=== PATIENT | male | born 1940 | race Caucasian/White ===

== ENCOUNTER 2017-06-28 17:41 | Inpatient (IN) | payer MEDICARE, BC ==
[~2017-06-28] VITALS: Ht 172.7 cm; Wt 72.8 kg
[~2017-06-28 17:41] MED LIST: ASPI81TA2 PO; BISA10SU61 RC; DILT30TA2 PO; DONE5TAB3 PO; FAMO20TA8 PO; HYDR-552 PO; LEVO50TA8 PO; MAGN400O6 PO; MULT-213 PO; RISP0.253 PO; TYL2T PO
--- NOTE | 2017-06-28 17:58 | NUR ---
Recieved pt to ed bed 03, a/ox3, pt was bb private ambulance from [facility] for pulmonary infiltrates on XRAY. Pt arrived on o2 at 3lpm via NC, pt denies chest pain. Pt gowned and placed on cont monitoring, NAD. VSS rr even and unlabroed. All needs are attended, kept warm and comfortable. pending er md evaluation
[2017-06-28 18:25] LABS: BASOPHILS # (AUTO) 0.1 /CMM (0.0-0.2); BASOPHILS % (AUTO) 0.4 % (0.0-2.0); EOSINOPHILS # (AUTO) 0.1 /CMM (0.0-0.7); EOSINOPHILS % (AUTO) 0.9 % (0.0-6.0); HEMATOCRIT 36 % (39-51); HEMOGLOBIN 11.7 g/dL (13.5-17.5); LYMPHOCYTES # (AUTO) 1.1 /CMM (0.8-4.8); LYMPHOCYTES % (AUTO) 7.6 % (20.0-44.0); MEAN CORPUSCULAR HEMOGLOBIN 27 PG (26.0-33.0); MEAN CORPUSCULAR HGB CONC 33 g/dl (31.0-36.0); MEAN CORPUSCULAR VOLUME 83 fL (80-96); MONOCYTES # (AUTO) 1.4 /CMM (0.1-1.30); MONOCYTES % (AUTO) 9.7 % (2.0-12.0); NEUTROPHILS # (AUTO) 11.7 /CMM (1.8-8.9); NEUTROPHILS % (AUTO) 81.4 % (43.0-81.0); PLATELET COUNT (AUTO) 250 /CMM (150-450); RDW COEFFICIENT OF VARIATION 15.6 (11.5-15.0); RED BLOOD CELL COUNT(AUTO) 4.31 MIL/uL (4.5-6.0); WHITE BLOOD COUNT (AUTO) 14.4 K/uL (4.3-11.0)
[2017-06-28 18:31] LABS: CALCIUM, SERUM 8.2 mg/dL (8.5-10.1); CARBON DIOXIDE 23 mmol/L (21-32); CHLORIDE 109 mmol/L (98-107); CREATININE 1.9 mg/dL (0.6-1.3); GLUCOSE 120 mg/dL (74-106); SODIUM SERUM 140 mmol/L (136-145); UREA NITROGEN, BLOOD 40 mg/dL (7-18)
[2017-06-28 18:38] LABS: TROPONIN I 0.097 ng/mL (0.00-0.056)
[2017-06-28 18:44] LABS: ALANINE AMINOTRANSFERASE 18 U/L (12-78); ALBUMIN 2.7 g/dL (3.4-5.0); ALKALINE PHOSPHATASE 58 U/L (46-116); ASPARTATE AMINOTRANSFERASE 14 U/L (15-37); B-TYPE NATRIURETIC PEPTIDE 27315 PG/ML (0-125); BILIRUBIN,DIRECT 0.1 mg/dL (0.0-0.2); BILIRUBIN,TOTAL 0.4 mg/dL (0.2-1.0); TOTAL PROTEIN, SERUM 5.6 g/dL (6.4-8.2)
--- NOTE | 2017-06-28 19:22 | NUR ---
REPORT GIVEN TO TOBI ALVA FOR CONT OF CARE
[2017-06-28] MEDS ORDERED: VANCOMYCIN 1 GM in IV D5W 250 ML IV ONE (19:30)
[2017-06-28] MEDS ORDERED: PIPERACILLIN /TAZOBACTAM 3.375 G in IV D5W 50 ML IV ONE (19:30)
--- NOTE | 2017-06-28 19:40 | NUR ---
REPORT RECEIVED FROM PASTORA FLORES RN FOR AMY.
[2017-06-28] MEDS ORDERED: PIPERACILLIN /TAZOBACTAM 3.375 G VIAL IV ONE (19:43)
[2017-06-28] MEDS ORDERED: VANCOMYCIN 1 GM VIAL ONE (19:43)
--- NOTE | 2017-06-28 20:06 | NUR ---
PT RESTING QUIETLY, VSS WITH RESP EVEN UNLABORED. WILL CONTINUE TO MONITOE PATIENT PROVIDING SAFETY AND COMFORT MEASURES.
[2017-06-28] MEDS ORDERED: FUROSEMIDE 20 MG/2 ML VIAL IV ONE (20:30)
[2017-06-28] MEDS ORDERED: FUROSEMIDE 20 MG/2 ML VIAL ONE (20:40)
--- NOTE | 2017-06-28 20:51 | NUR ---
PT ADMIT TO TELE 32O BED 2, REPORT GIVEN TO ADELINE FOR AMY.
[2017-06-28 21:15] VITALS: BP 154/92
--- NOTE | 2017-06-28 21:15 | NUR ---
MAGAZINE SUPERVISOR OPENING NOTES: RECEIVED PT FROM ED. PT IS ON 2LPM VIA NC AND IS TOLERATING WELL. PT HAS IV ON R AC #18G AND IS PATENT AND INTACT. PT IS A/OX2-3. CALL LIGHT WITHIN PT'S REACH. BED KEPT IN LOW, LOCKED POSITION, AND SIDE RAILS X 2 UP. AWAITING FOR ADMISSION ORDERS. PT DENIES ANY PAIN. NO SOB NOTED. NO S/S OF DISTRESS NOTED AT THIS TIME. WILL CONTINUE TO MONITOR PT.
--- NOTE | 2017-06-28 21:27 | NUR ---
PT TRANSPORTED TO [place] [id number] BED 1 WITH RN, ACLS PROTOCOL. VSS.
[2017-06-28] MEDS ORDERED: ENOXAPARIN SODIUM 40 MG/0.4 ML DISP.SYRIN SQ SCH (22:30)
[2017-06-28] MEDS ORDERED: HYDROCODONE/APAP 5/325MG 1 EACH TABLET PO PRN (22:30)
[2017-06-28] MEDS ORDERED: Z GUARD REMEDY 2 OZ OINT TP PRN (22:30)
[2017-06-28] MEDS ORDERED: ONDANSETRON HCL/PF 4 MG/2 ML VIAL IVP PRN (22:30)
[2017-06-28] MEDS ORDERED: AZITHROMYCIN 250 MG TABLET PO SCH (22:30)
[2017-06-28] MEDS ORDERED: AZITHROMYCIN 250 MG TABLET PO ONE (22:30)
[2017-06-28] MEDS ORDERED: ACETAMINOPHEN 325 MG TABLET PO PRN (22:30)
[2017-06-28] MEDS ORDERED: BUMETANIDE INJ 6 MG in IV NS 0.9% 36 ML IV ONE (22:30)
[2017-06-28] MEDS ORDERED: CEFTRIAXONE 1 G in IV D5W 50 ML IV SCH (22:30)
[2017-06-28] MEDS ORDERED: CEFTRIAXONE 1 G VIAL ONE (22:49)
[2017-06-28] MEDS ORDERED: AZITHROMYCIN 250 MG TABLET ONE (22:50)
[2017-06-28] MEDS ORDERED: ENOXAPARIN SODIUM 40 MG/0.4 ML DISP.SYRIN SQ ONE (22:51)
--- NOTE | 2017-06-28 23:17 | NUR ---
MANAGED CARE MANAGER NOTES: ZITHROMAX 250MG TO BE STARTED NEXT DAY ZITHROMAX 500MG IS TO BE GIVEN NOW.
[2017-06-29] VITALS: BP 158/92
[2017-06-29] MEDS ORDERED: BUMETANIDE INJ 0.25 MG/ML VIAL ONE ×2 (00:09→00:11)
--- NOTE | 2017-06-29 03:48 | NUR ---
PIANO TECHNICIAN NOTES: SPOKE TO OPINION POLLS SURVEY WORKER CARLOS TELLO ABOUT LATEST TROPONIN 0.106 ; PER ELISHA, CALL HIM IF IT IS GREATER THAN 1.0 ; WILL MONITOR TROPONIN VALUES.
[2017-06-29 04:00] VITALS: BP 148/79
[2017-06-29] MEDS ORDERED: DILTIAZEM HCL 30 MG TABLET ONE (04:21)
[2017-06-29] MEDS ORDERED: DILTIAZEM HCL 30 MG TABLET PO SCH (05:00)
--- NOTE | 2017-06-29 06:19 | NUR ---
ACTIVITIES THERAPIST NOTES: PT BEING VERBALLY COMBATIVE WHILE BEING CLEANED AND CHANGED. PT ALSO GRABBING AND HITTING CNAS. Addendum: 06/29/17 at 0639 by ISAC GONZALES RN EXPLAINED TO PT THAT HE NEEDED TO BE CHANGED SINCE HE HAD A BOWEL MOVEMENT AND HAS BEEN URINATING. ALSO TOLD THE PT THAT HIS SACRAL REDNESS CAN GET WORSE IF HE DOES NOT GET CLEANED. 2 CNAS ASSISTED. PT HITTING OTHER WATERWORKS PUMP STATION OPERATOR WHILE ANOTHER MALE WATERWORKS PUMP STATION OPERATOR HOLDING ONTO HIS ARMS TO PREVENT FROM HITTING.
--- NOTE | 2017-06-29 06:30 | NUR ---
WILD OYSTER HARVESTER NOTES: PT IS REFUSING TO HAVE BLOOD DRAWN. PT IS BEING VERBALLY ABUSIVE TO INFORMATION SYSTEMS SECURITY MANAGER AND TO STAFF UNDER HIS CARE. WILL TRY AGAIN AT ANOTHER TIME.
[2017-06-29 06:57] VITALS: BP 150/76
--- NOTE | 2017-06-29 07:15 | NUR ---
AUTO SUSPENSION AND STEERING MECHANIC CLOSING NOTES: ALL NEEDS WERE ATTENDED AND ANTICIPATED FOR. PT IS ON 2LPM VIA NC AND IS TOLERATING WELL. PT HAS IV ON R AC #18G AND IS PATENT AND INTACT. PT CURRENTLY S/L. PT IS A/OX2-3. CALL LIGHT WITHIN PT'S REACH. BED KEPT IN LOW, LOCKED POSITION, AND SIDE RAILS X 2 UP. BED ALARM ACTIVATED. PT ON TELE BOX AND READING SHOWS A FIB 86 WITH PVCS. PT DENIES ANY PAIN. NO SOB NOTED. NO S/S OF DISTRESS NOTED AT THIS TIME. ENDORSED TO AM NURSE FOR AMY.
--- NOTE | 2017-06-29 07:20 | NUR ---
ARTIE MS NOTES PATIENT ALERT AND ORIENTED X2-3, NO S/SX OF DISTRESS, DENIES PAIN AT THIS TIME, PIV PATENT AND FLUSHES WELL, INFORMED PATIENT BREAKFAST HELD AT THIS TIME FOR CARDIO CONSULT, VERBALIZED UNDERSTANDING, ALL NEEDS ATTENDED AND MET, CALL LIGHT WITHIN REACH, BED ALARM ON, BED IN LOW POSITION AND LOCKED, SIDERAILS X2 UP, WILL CONTINUE TO MONITOR. Addendum: 06/29/17 at 0749 by STEPHANIE WALLER RN CORRECTION: ELECTRICAL HIGH TENSION TESTER NOTES
[2017-06-29] MEDS: LEVOTHYROXINE SODIUM 50 MCG TABLET PO SCH (07:30)
[2017-06-29 08:00] VITALS: BP 127/95
[2017-06-29] MEDS: ASPIRIN 81 MG TAB.CHEW PO SCH (08:28)
[2017-06-29] MEDS: FAMOTIDINE (20 MG) 20 MG TABLET PO SCH (08:29)
--- NOTE | 2017-06-29 08:29 | NUR ---
RN MS NOTES PATIENT REFUSED ALL PO MEDICATIONS, EXPLAINED RISKS AND BENEFITS STILL REFUSED, PER PATIENT "I NEVER TAKE ANY MEDICATIONS IN MY LIFE." PATIENT EATING BREAKFAST, SEEN BY DR. MOON AND RECEIVED NEW ORDERS. ORDER NOTED AND CARRIED OUT. WILL CONTINUE TO MONITOR.
[2017-06-29 08:55] LABS: BASOPHILS # (AUTO) 0.1 /CMM (0.0-0.2); BASOPHILS % (AUTO) 0.8 % (0.0-2.0); EOSINOPHILS # (AUTO) 0.3 /CMM (0.0-0.7); EOSINOPHILS % (AUTO) 1.9 % (0.0-6.0); HEMATOCRIT 39 % (39-51); HEMOGLOBIN 12.3 g/dL (13.5-17.5); LYMPHOCYTES # (AUTO) 1.2 /CMM (0.8-4.8); LYMPHOCYTES % (AUTO) 8.5 % (20.0-44.0); MEAN CORPUSCULAR HEMOGLOBIN 27 PG (26.0-33.0); MEAN CORPUSCULAR HGB CONC 32 g/dl (31.0-36.0); MEAN CORPUSCULAR VOLUME 84 fL (80-96); NEUTROPHILS # (AUTO) 11.3 /CMM (1.8-8.9); NEUTROPHILS % (AUTO) 81.8 % (43.0-81.0); PLATELET COUNT (AUTO) 233 /CMM (150-450); RDW COEFFICIENT OF VARIATION 16.6 (11.5-15.0); RED BLOOD CELL COUNT(AUTO) 4.65 MIL/uL (4.5-6.0); WHITE BLOOD COUNT (AUTO) 13.8 K/uL (4.3-11.0)
[2017-06-29] MEDS ORDERED: BUMETANIDE INJ 8 MG in IV NS 0.9% 48 ML IV ONE (09:00)
[2017-06-29 10:00] LABS: ALANINE AMINOTRANSFERASE 25 U/L (12-78); ALBUMIN 2.8 g/dL (3.4-5.0); ALKALINE PHOSPHATASE 57 U/L (46-116); ASPARTATE AMINOTRANSFERASE 16 U/L (15-37); BILIRUBIN,TOTAL 0.5 mg/dL (0.2-1.0); CALCIUM, SERUM 8.4 mg/dL (8.5-10.1); CARBON DIOXIDE 24 mmol/L (21-32); CHLORIDE 109 mmol/L (98-107); CREATININE 1.9 mg/dL (0.6-1.3); GLUCOSE 95 mg/dL (74-106); MAGNESIUM 1.9 mg/dL (1.8-2.4); PHOSPHORUS 4.2 mg/dL (2.5-4.9); POTASSIUM 3.9 mmol/L (3.5-5.1); SODIUM SERUM 143 mmol/L (136-145); TOTAL PROTEIN, SERUM 5.9 g/dL (6.4-8.2); UREA NITROGEN, BLOOD 38 mg/dL (7-18)
[2017-06-29 10:05] LABS: THYROID STIMULATING HORMONE 2.918 uIU/mL (0.358-3.74)
[2017-06-29 16:00] VITALS: BP 136/80
--- NOTE | 2017-06-29 16:39 | NUR ---
RN MS NOTES PATIENT A/OX2, BREATHING EVEN AND UNLABORED NO DISTRESS NOTED, PATIENT REFUSED TURNING AND REPOSITIONING, ALLOWED STAFF FOR A QUICK ADL SKIN CARE. EXPLAINED RISKS AND BENEFITS FOR SKIN BREAKDOWN, STILL REFUSED, PATIENT STATED "ITS MY BODY MY SKIN, MY DECISION". WOUND TREATMENT RENDERED, Z-GUARD AND MEPILEX IN PLACED, PATIENT COMPLETED BUMEX MEDICATION, NEEDS ATTENDED AND ANTICIPATED, CALL LIGHT WITHIN REACH, WILL ENDORSE TO WHAT JOB TITLES MEAN FOR AMY. Addendum: 06/29/17 at 1930 by STEPHANIE WALLER RN TIME CORRECTION: 1930
--- NOTE | 2017-06-29 16:49 | NUR ---
RN MS NOTES RECEIVED RESULT FOR MRSA NARES, POSITIVE MRSA NARES, DR. ROLO HDZ AWARE RECEIVED ORDER FOR BACTROBAN OINT. ORDER NOTED AND CARRIED OUT. CONTACT PRECAUTION OBSERVED.
--- NOTE | 2017-06-29 19:30 | NUR ---
TELE/RN RECEIVE PATIENT AWAKE, ALERT, ORIENTED, COMFORTABLE, NO C/O NO DISTRESS NOTED, CALL LIGHT IN REACH. WILL MONITOR.
[2017-06-29] MEDS: MUPIROCIN OINT 2% 22 GM TUBE SCH (21:00)
[2017-06-29] MEDS ORDERED: AZITHROMYCIN 250 MG TABLET PO SCH (21:00)
[2017-06-29 21:01] VITALS: BP 127/73
[2017-06-29] MEDS: ENOXAPARIN SODIUM 40 MG/0.4 ML DISP.SYRIN SQ SCH (21:58)
[2017-06-29] MEDS: risperiDONE 0.25 MG TABLET PO SCH (22:00)
[2017-06-29] MEDS: DONEPEZIL 5 MG TABLET PO SCH (22:00)
--- NOTE | 2017-06-30 00:29 | NUR ---
TELE/RN PATIENT IS SLEEPING AT THIS TIME, EASILY AROUSABLE, APPEAR COMFORTABLE, NO SIGNS OF DISTRESS NOTED, CALL LIGHT IN REACH. WILL CONTINUE TO MONITOR.
[2017-06-30 00:47] VITALS: BP 136/84
[2017-06-30 04:06] VITALS: BP 129/87
[2017-06-30 06:28] LABS: EOSINOPHILS # (AUTO) 0.2 /CMM (0.0-0.7); EOSINOPHILS % (AUTO) 2.1 % (0.0-6.0); HEMATOCRIT 39 % (39-51); HEMOGLOBIN 12.3 g/dL (13.5-17.5); MEAN CORPUSCULAR HEMOGLOBIN 26 PG (26.0-33.0); MEAN CORPUSCULAR HGB CONC 32 g/dl (31.0-36.0); MEAN CORPUSCULAR VOLUME 83 fL (80-96); MONOCYTES # (AUTO) 0.7 /CMM (0.1-1.30); MONOCYTES % (AUTO) 6.1 % (2.0-12.0); NEUTROPHILS # (AUTO) 9.5 /CMM (1.8-8.9); NEUTROPHILS % (AUTO) 82.8 % (43.0-81.0); PLATELET COUNT (AUTO) 220 /CMM (150-450); RDW COEFFICIENT OF VARIATION 16.7 (11.5-15.0); RED BLOOD CELL COUNT(AUTO) 4.64 MIL/uL (4.5-6.0); WHITE BLOOD COUNT (AUTO) 11.5 K/uL (4.3-11.0)
[2017-06-30 06:54] LABS: ALANINE AMINOTRANSFERASE 20 U/L (12-78); ALBUMIN 2.8 g/dL (3.4-5.0); ALKALINE PHOSPHATASE 55 U/L (46-116); ASPARTATE AMINOTRANSFERASE 15 U/L (15-37); BILIRUBIN,TOTAL 0.4 mg/dL (0.2-1.0); CALCIUM, SERUM 8.4 mg/dL (8.5-10.1); CARBON DIOXIDE 31 mmol/L (21-32); CHLORIDE 107 mmol/L (98-107); CREATININE 2.1 mg/dL (0.6-1.3); GLUCOSE 86 mg/dL (74-106); MAGNESIUM 1.8 mg/dL (1.8-2.4); PHOSPHORUS 4.2 mg/dL (2.5-4.9); POTASSIUM 3.9 mmol/L (3.5-5.1); SODIUM SERUM 144 mmol/L (136-145); TOTAL PROTEIN, SERUM 5.9 g/dL (6.4-8.2); UREA NITROGEN, BLOOD 43 mg/dL (7-18)
--- NOTE | 2017-06-30 07:10 | NUR ---
RN NOTES PT IS IN BED, RESTING COMFORTABLY. PT ON RA, RESPIRATIONS ARE EVEN AND UNLABORED. NO SIGNS OF DISTRESS NOTED. SAFETY MEASURES ARE IN PLACE, CALL LIGHT IS IN REACH. WILL CONTINUE TO MONITOR.
[2017-06-30] MEDS: LEVOTHYROXINE SODIUM 50 MCG TABLET PO SCH (07:30)
[2017-06-30 08:00] VITALS: BP 138/81
[2017-06-30] MEDS: FAMOTIDINE (20 MG) 20 MG TABLET PO SCH (08:28)
[2017-06-30] MEDS: ASPIRIN 81 MG TAB.CHEW PO SCH (08:28)
[2017-06-30] MEDS: MUPIROCIN OINT 2% 22 GM TUBE SCH ×2 (08:28→21:00)
[2017-06-30] MEDS ORDERED: BUMETANIDE INJ 8 MG in IV NS 0.9% 48 ML IV ONE (10:00)
--- NOTE | 2017-06-30 13:01 | NUR ---
WOUND CARE CONSULT: PT PRESENTS WITH INTACT DEEP TISSUE INJURY TO SACRUM, WELL RASH TO LOWER BUTTOCKS, PERINEAL AREAS PRESENT ON ADMISSION. PT ALSO NOTED TO HAVE DUSKY COLOR TO PLANTAR FEET AND HEELS WITH SCARRING TO RT HEEL. PT IS VERY BONY. ALL SKIN PROTECTION AND WOUND RECOMMENDATIONS DISCUSSED WITH NURSING STAFF. FIRST STEP MATTRESS ORDERED. WILL SEE PRN. MOORE IN AGREEMENT WITH PLAN OF CARE. Addendum: 06/30/17 at 1304 by GIANNA ROSE WNDNU Amended: Links added.
[2017-06-30 16:00] VITALS: BP 120/92
[2017-06-30] MEDS: PYRIDOSTIGMINE BROMIDE 60 MG TABLET PO SCH (17:00)
[2017-06-30] MEDS: CLOTRIMAZOLE 1% 15 GM TUBE TP SCH (17:08)
--- NOTE | 2017-06-30 18:14 | NUR ---
RN NOTES PT IS SLEEPING IN BED COMFORTABLY. PT ON 2L O2 VIA NASAL CANNULA, RESPIRATIONS ARE EVEN AND UNLABORED. PT ON [employer] FIRST STEP AIR MATTRESS AND HEELS ARE OFFLOADING. WOUND CARE WAS PROVIDED FOR SACRUM AND DIAPER WAS CHANGED NEEDED. PT REFUSED ALL ORAL MEDICATIONS. IV ON RAC INTACT AND PATENT, RUNNING BUMEX @ 10ML/HR. SAFETY MEASURES ARE IN PLACE, CALL LIGHT IS IN REACH. WILL ENDORSE TO HOUSEKEEPING LEAD RN FOR CONTINUITY OF CARE.
--- NOTE | 2017-06-30 19:43 | NUR ---
TELE/RN RECEIVE PATIENT AWAKE, ALERT, ORIENTED, COMFORTABLE, NO C/O PAIN, NO DISTRESS NOTED, CALL LIGHT IN REACH. WILL MONITOR.
[2017-06-30 20:16] VITALS: BP 104/69
[2017-06-30] MEDS: ENOXAPARIN SODIUM 40 MG/0.4 ML DISP.SYRIN SQ SCH (21:00)
[2017-06-30] MEDS: DONEPEZIL 5 MG TABLET PO SCH (22:00)
[2017-06-30] MEDS: risperiDONE 0.25 MG TABLET PO SCH (22:00)
--- NOTE | 2017-06-30 22:47 | NUR ---
MS/RN PATIENT REFUSED ALL DUE MEDS. ALL MEDS WERE RETURNED TO [facility].
[2017-07-01] MEDS: LEVOTHYROXINE SODIUM 50 MCG TABLET PO SCH (07:30)
--- NOTE | 2017-07-01 07:32 | NUR ---
MS RN OPENING NOTES RECEIVED PT IN STABLE CONDITION. PATIENT IS SLEEPING IN BED. CALL LIGHT IS WITHIN REACH. BEDSIDE RAILS ARE UP X2. BED IS LOCKED AND LOWERED. WILL CONTINUE TO MONITOR.
[2017-07-01 08:00] VITALS: BP 131/96
[2017-07-01] MEDS ORDERED: BUMETANIDE INJ 8 MG in IV NS 0.9% 48 ML IV ONE (08:30)
[2017-07-01] MEDS: PYRIDOSTIGMINE BROMIDE 60 MG TABLET PO SCH ×3 (09:00→17:38)
[2017-07-01] MEDS: FAMOTIDINE (20 MG) 20 MG TABLET PO SCH (09:00)
[2017-07-01] MEDS: MUPIROCIN OINT 2% 22 GM TUBE SCH ×2 (09:00→21:00)
[2017-07-01] MEDS: ASPIRIN 81 MG TAB.CHEW PO SCH (09:00)
[2017-07-01] MEDS: CLOTRIMAZOLE 1% 15 GM TUBE TP SCH ×2 (09:35→17:39)
[2017-07-01 10:18] LABS: BASOPHILS % (AUTO) 0.1 % (0.0-2.0); EOSINOPHILS # (AUTO) 0.2 /CMM (0.0-0.7); EOSINOPHILS % (AUTO) 1.4 % (0.0-6.0); HEMATOCRIT 43 % (39-51); HEMOGLOBIN 13.5 g/dL (13.5-17.5); LYMPHOCYTES # (AUTO) 1.3 /CMM (0.8-4.8); LYMPHOCYTES % (AUTO) 10.1 % (20.0-44.0); MEAN CORPUSCULAR HEMOGLOBIN 26 PG (26.0-33.0); MEAN CORPUSCULAR HGB CONC 31 g/dl (31.0-36.0); MEAN CORPUSCULAR VOLUME 83 fL (80-96); MONOCYTES # (AUTO) 0.5 /CMM (0.1-1.30); MONOCYTES % (AUTO) 3.9 % (2.0-12.0); NEUTROPHILS # (AUTO) 10.8 /CMM (1.8-8.9); NEUTROPHILS % (AUTO) 84.5 % (43.0-81.0); PLATELET COUNT (AUTO) 231 /CMM (150-450); RED BLOOD CELL COUNT(AUTO) 5.14 MIL/uL (4.5-6.0); WHITE BLOOD COUNT (AUTO) 12.8 K/uL (4.3-11.0)
[2017-07-01 10:38] LABS: ALANINE AMINOTRANSFERASE 19 U/L (12-78); ALKALINE PHOSPHATASE 57 U/L (46-116); ASPARTATE AMINOTRANSFERASE 13 U/L (15-37); BILIRUBIN,TOTAL 0.5 mg/dL (0.2-1.0); CALCIUM, SERUM 8.7 mg/dL (8.5-10.1); CARBON DIOXIDE 27 mmol/L (21-32); CHLORIDE 103 mmol/L (98-107); CREATININE 2.1 mg/dL (0.6-1.3); GLUCOSE 161 mg/dL (74-106); MAGNESIUM 1.8 mg/dL (1.8-2.4); PHOSPHORUS 3.7 mg/dL (2.5-4.9); POTASSIUM 3.9 mmol/L (3.5-5.1); SODIUM SERUM 141 mmol/L (136-145); TOTAL PROTEIN, SERUM 6.3 g/dL (6.4-8.2); UREA NITROGEN, BLOOD 48 mg/dL (7-18)
[2017-07-01 16:00] VITALS: BP 106/72
--- NOTE | 2017-07-01 18:40 | NUR ---
MS RN CLOSING NOTES PATIENT IS IN NO APPARENT DISTRESS. PATIENT IS RESTING IN BED. CALL LIGHT IS WITHIN REACH. BEDSIDE RAILS ARE UP X2. BED IS LOCKED AND LOWERED. WILL ENDORSE CARE TO DIESEL TRUCK CRANE OPERATOR NURSE FOR AMY.
--- NOTE | 2017-07-01 19:30 | NUR ---
MS/RN RECEIVE PATIENT SLEEPING, EASILY AROUSABLE, APPEAR COMFORTABLE, NO SIGNS OF DISTRESS NOTED, CALL LIGHT IN REACH. WILL MONITOR.
[2017-07-01 20:00] VITALS: BP 119/71
[2017-07-01] MEDS: ENOXAPARIN SODIUM 40 MG/0.4 ML DISP.SYRIN SQ SCH (21:00)
[2017-07-01] MEDS: DONEPEZIL 5 MG TABLET PO SCH (22:00)
[2017-07-01] MEDS: risperiDONE 0.25 MG TABLET PO SCH (22:00)
--- NOTE | 2017-07-01 23:38 | NUR ---
MS/RN PATIENT REFUSED STRAIGHT CATH ORDERED TO OBTAIN URINE SPECIMEN FOR UA PROFILE.
--- NOTE | 2017-07-02 06:50 | NUR ---
MS/RN PATIENT IS SLEEPING AT THIS TIME, AROUSABLE, NO DISTRESS NOTED, ALL NEEDS ATTENDED AT THIS TIME. WILL CONTINUE TO MONITOR.
--- NOTE | 2017-07-02 07:25 | NUR ---
MS RN OPENING NOTES RECEIVED PATIENT IN STABLE CONDITION. PATIENT IS RESTING IN BED. BEDSIDE RAILS ARE UP X2. BED IS LOCKED AND LOWERED. CALL LIGHT IS WITHIN REACH. WILL CONTINUE TO MONITOR.
[2017-07-02] MEDS: LEVOTHYROXINE SODIUM 50 MCG TABLET PO SCH (07:58)
[2017-07-02] MEDS: FUROSEMIDE 100 MG/10 ML VIAL IV SCH ×3 (07:59→16:00)
[2017-07-02 08:00] VITALS: BP 128/87
[2017-07-02 08:06] LABS: BASOPHILS % (AUTO) 0.1 % (0.0-2.0); EOSINOPHILS # (AUTO) 0.3 /CMM (0.0-0.7); EOSINOPHILS % (AUTO) 1.6 % (0.0-6.0); HEMATOCRIT 43 % (39-51); HEMOGLOBIN 13.1 g/dL (13.5-17.5); LYMPHOCYTES # (AUTO) 1.9 /CMM (0.8-4.8); LYMPHOCYTES % (AUTO) 11.9 % (20.0-44.0); MEAN CORPUSCULAR HEMOGLOBIN 26 PG (26.0-33.0); MEAN CORPUSCULAR HGB CONC 31 g/dl (31.0-36.0); MEAN CORPUSCULAR VOLUME 84 fL (80-96); MONOCYTES # (AUTO) 1.3 /CMM (0.1-1.30); MONOCYTES % (AUTO) 7.9 % (2.0-12.0); NEUTROPHILS # (AUTO) 12.7 /CMM (1.8-8.9); NEUTROPHILS % (AUTO) 78.5 % (43.0-81.0); PLATELET COUNT (AUTO) 193 /CMM (150-450); RDW COEFFICIENT OF VARIATION 16.5 (11.5-15.0); RED BLOOD CELL COUNT(AUTO) 5.11 MIL/uL (4.5-6.0); WHITE BLOOD COUNT (AUTO) 16.1 K/uL (4.3-11.0)
[2017-07-02] MEDS: PYRIDOSTIGMINE BROMIDE 60 MG TABLET PO SCH ×3 (09:44→17:31)
[2017-07-02] MEDS: ASPIRIN 81 MG TAB.CHEW PO SCH (09:44)
[2017-07-02] MEDS: FAMOTIDINE (20 MG) 20 MG TABLET PO SCH (09:45)
[2017-07-02] MEDS: MUPIROCIN OINT 2% 22 GM TUBE SCH ×2 (09:45→21:00)
[2017-07-02] MEDS: CLOTRIMAZOLE 1% 15 GM TUBE TP SCH ×2 (09:45→17:31)
[2017-07-02 10:03] LABS: CALCIUM, SERUM 8.9 mg/dL (8.5-10.1); CARBON DIOXIDE 26 mmol/L (21-32); CHLORIDE 100 mmol/L (98-107); CREATININE 2.2 mg/dL (0.6-1.3); GLUCOSE 132 mg/dL (74-106); POTASSIUM 3.6 mmol/L (3.5-5.1); SODIUM SERUM 142 mmol/L (136-145); UREA NITROGEN, BLOOD 66 mg/dL (7-18)
[2017-07-02 10:09] LABS: ALANINE AMINOTRANSFERASE 23 U/L (12-78); ALBUMIN 3.6 g/dL (3.4-5.0); ALKALINE PHOSPHATASE 68 U/L (46-116); ASPARTATE AMINOTRANSFERASE 16 U/L (15-37); BILIRUBIN,TOTAL 0.5 mg/dL (0.2-1.0); MAGNESIUM 1.9 mg/dL (1.8-2.4); PHOSPHORUS 3.5 mg/dL (2.5-4.9); TOTAL PROTEIN, SERUM 7.3 g/dL (6.4-8.2)
--- NOTE | 2017-07-02 17:01 | NUR ---
3RD DOSE OF LASIX SCHEDULED AT 1700 NOT GIVEN. DOSE 80MG. NOT GIVEN DUE TO BELOW BASELINE BLOOD PRESSURE LOW OF 96/68.
--- NOTE | 2017-07-02 19:00 | NUR ---
MS RN CLOSING NOTES PATIENT IS IN STABLE CONDITION. IN NO APPARENT DISTRESS. PATIENT IS RESTING IN BED. CALL LIGHT IS WITHIN REACH. BEDSIDE RAILS ARE UP X2. BED IS LOCKED AND LOWERED. WILL GIVE REPORT TO ASSISTANT HALL DIRECTOR NURSE FOR AMY.
[2017-07-02 20:00] VITALS: BP 107/65
[2017-07-02] MEDS: ENOXAPARIN SODIUM 40 MG/0.4 ML DISP.SYRIN SQ SCH (21:00)
[2017-07-02] MEDS: risperiDONE 0.25 MG TABLET PO SCH (22:00)
[2017-07-02] MEDS: DONEPEZIL 5 MG TABLET PO SCH (22:00)
--- NOTE | 2017-07-02 22:00 | NUR ---
PT REFUSED ALL MEDICATIONS. : LOVENOX, BACTROBAN OINT, ARICEPT, RISPERDAL. WILL CONTINUE TO MONITOR. Addendum: 07/03/17 at 0553 by IBRAHIMA MCDUFFIE RN EXPLAINED RISKS AND BENEFITS; PT STATED "JUST LEAVE ME ALONE, I DON'T WANT TO TAKE THOSE MEDICATIONS."
[2017-07-03 06:30] LABS: EOSINOPHILS # (AUTO) 0.2 /CMM (0.0-0.7); EOSINOPHILS % (AUTO) 1.7 % (0.0-6.0); HEMATOCRIT 41 % (39-51); HEMOGLOBIN 12.9 g/dL (13.5-17.5); LYMPHOCYTES # (AUTO) 1.8 /CMM (0.8-4.8); LYMPHOCYTES % (AUTO) 12.3 % (20.0-44.0); MEAN CORPUSCULAR HEMOGLOBIN 26 PG (26.0-33.0); MEAN CORPUSCULAR HGB CONC 31 g/dl (31.0-36.0); MEAN CORPUSCULAR VOLUME 83 fL (80-96); MONOCYTES # (AUTO) 0.9 /CMM (0.1-1.30); MONOCYTES % (AUTO) 6.1 % (2.0-12.0); NEUTROPHILS # (AUTO) 11.6 /CMM (1.8-8.9); NEUTROPHILS % (AUTO) 79.9 % (43.0-81.0); PLATELET COUNT (AUTO) 214 /CMM (150-450); RDW COEFFICIENT OF VARIATION 16.5 (11.5-15.0); RED BLOOD CELL COUNT(AUTO) 4.93 MIL/uL (4.5-6.0); WHITE BLOOD COUNT (AUTO) 14.6 K/uL (4.3-11.0)
[2017-07-03 06:51] LABS: ALANINE AMINOTRANSFERASE 18 U/L (12-78); ALBUMIN 2.9 g/dL (3.4-5.0); ALKALINE PHOSPHATASE 53 U/L (46-116); ASPARTATE AMINOTRANSFERASE 17 U/L (15-37); BILIRUBIN,TOTAL 0.4 mg/dL (0.2-1.0); CALCIUM, SERUM 8.6 mg/dL (8.5-10.1); CARBON DIOXIDE 34 mmol/L (21-32); CHLORIDE 100 mmol/L (98-107); CREATININE 2.2 mg/dL (0.6-1.3); GLUCOSE 92 mg/dL (74-106); MAGNESIUM 1.9 mg/dL (1.8-2.4); PHOSPHORUS 3.1 mg/dL (2.5-4.9); POTASSIUM 3.5 mmol/L (3.5-5.1); SODIUM SERUM 141 mmol/L (136-145); TOTAL PROTEIN, SERUM 5.9 g/dL (6.4-8.2); UREA NITROGEN, BLOOD 67 mg/dL (7-18)
[2017-07-03] MEDS: LEVOTHYROXINE SODIUM 50 MCG TABLET PO SCH (06:52)
--- NOTE | 2017-07-03 07:33 | NUR ---
RN CLOSING NOTES NO SIGNIFICANT CHANGES OVER NIGHT. PT REFUSED ALL MEDICATIONS FROM [id number]. PT AWAKE AND ALERT RESTING IN BED. NO S/S OF PAIN OR DISTRESS. NO COMPLAINTS OF SOB. PT ON 2L O2 VIA NASAL CANNULA. PT TOLERATING WELL. PT HAS A RIGHT AC IV #18, SL, INTACT AND PATENT. SAFETY PRECAUTIONS IN PLACE. BED IN LOW, LOCKED POSITION, WITH 2XSIDERAILS UP. CALL LIGHT WITHIN REACH. WILL ENDORSE TO DAY SNURSE FOR CONTINUITY OF CARE.
[2017-07-03 08:00] VITALS: BP 102/77
--- NOTE | 2017-07-03 08:00 | NUR ---
MS RN OPENING NOTES RECEIVED REPORT FROM [facility] AWAKE AND ALERT RESTING IN BED. NO S/S OF PAIN OR DISTRESS. NO COMPLAINTS OF SOB. PT ON 2L O2 VIA NASAL CANNULA. PT TOLERATING WELL. PT HAS A RIGHT AC IV #18, SL, INTACT AND PATENT. SAFETY PRECAUTIONS IN PLACE. BED IN LOW, LOCKED POSITION, WITH 2XSIDERAILS UP. CALL LIGHT WITHIN REACH. WILL CONTINUE TO MONITOR.
[2017-07-03] MEDS: PYRIDOSTIGMINE BROMIDE 60 MG TABLET PO SCH ×3 (09:06→17:39)
[2017-07-03] MEDS: FAMOTIDINE (20 MG) 20 MG TABLET PO SCH (09:06)
[2017-07-03] MEDS: ASPIRIN 81 MG TAB.CHEW PO SCH (09:06)
[2017-07-03] MEDS: CLOTRIMAZOLE 1% 15 GM TUBE TP SCH ×2 (09:07→17:40)
[2017-07-03] MEDS: MUPIROCIN OINT 2% 22 GM TUBE SCH ×2 (09:07→22:47)
[2017-07-03 16:00] VITALS: BP 108/71
--- NOTE | 2017-07-03 19:00 | NUR ---
RN OPENING NOTES RECEIVED REPORT FROM [facility] MARR AWAKE AND ALERT RESTING IN BED. NO S/S OF PAIN OR DISTRESS. NO COMPLAINTS OF SOB. PT ON 2L O2 VIA NASAL CANNULA. PT TOLERATING WELL. PT HAS A RIGHT AC IV #18, SL, INTACT AND PATENT. SAFETY PRECAUTIONS IN PLACE. BED IN LOW, LOCKED POSITION, WITH 2XSIDERAILS UP. CALL LIGHT WITHIN REACH. WILL CONTINUE TO MONITOR.
[2017-07-03 20:00] VITALS: BP 103/59
[2017-07-03 20:31] VITALS: BP 103/59
[2017-07-03] MEDS: risperiDONE 0.25 MG TABLET PO SCH (22:34)
[2017-07-03] MEDS: DONEPEZIL 5 MG TABLET PO SCH (22:34)
[2017-07-03] MEDS: ENOXAPARIN SODIUM 40 MG/0.4 ML DISP.SYRIN SQ SCH (22:43)
--- NOTE | 2017-07-04 06:56 | NUR ---
RN CLOSING NOTES PT RESTING IN BED. PT WAS COMPLIANT WITH ALL MEDICATIONS. NO S/S OF PAIN OR DISTRESS. NO COMPLAINTS OF SOB. PT ON 2L O2 VIA NASAL CANNULA. PT TOLERATING WELL. HAS L FA IV #24 SL, INTACT AND PATENT. PT PULLED OUT R AC IV. SAFETY PRECAUTIONS IN PLACE. BED IN LOW, LOCKED POSITION, WITH 2XSIDERAILS UP. CALL LIGHT WITHIN REACH. WILL CONTINUE TO MONITOR.
--- NOTE | 2017-07-04 07:38 | NUR ---
PT. REFUSED FOR CHEST XRAY, INFORMED RN (IBRAHIMA).
--- NOTE | 2017-07-04 07:44 | NUR ---
MS/RN OPENING NOTE PATIENT IN BED IN STABLE CONDITION. A/O X 4. NO SIGNS OF ACUTE DISTRESS. C/O OF BACK PAIN RATE 03/26. WILL ADMINISTER PRN PAIN MEDICATION. ALL NEEDS ATTENDED TO. CALL LIGHT WITHIN REACH. 1:1 SITTER AT BEDSIDE. WILL CONTINUE TO MONITOR TO ENSURE SAFETY. Addendum: 07/04/17 at 0748 by SANFORD PAIZ RN NO 1:1 SITTER NEEDED AT BEDSIDE.
[2017-07-04 08:00] VITALS: BP 128/75
[2017-07-04] MEDS: PYRIDOSTIGMINE BROMIDE 60 MG TABLET PO SCH ×3 (08:24→16:51)
[2017-07-04] MEDS: CLOTRIMAZOLE 1% 15 GM TUBE TP SCH ×2 (08:24→16:53)
[2017-07-04] MEDS: MUPIROCIN OINT 2% 22 GM TUBE SCH ×2 (08:24→21:37)
[2017-07-04] MEDS: FAMOTIDINE (20 MG) 20 MG TABLET PO SCH (08:25)
[2017-07-04] MEDS: LEVOTHYROXINE SODIUM 50 MCG TABLET PO SCH (08:25)
[2017-07-04] MEDS: ASPIRIN 81 MG TAB.CHEW PO SCH (08:25)
[2017-07-04 08:27] LABS: BASOPHILS % (AUTO) 0.2 % (0.0-2.0); EOSINOPHILS # (AUTO) 0.4 /CMM (0.0-0.7); EOSINOPHILS % (AUTO) 3.4 % (0.0-6.0); HEMATOCRIT 36 % (39-51); HEMOGLOBIN 11.3 g/dL (13.5-17.5); LYMPHOCYTES # (AUTO) 1.3 /CMM (0.8-4.8); LYMPHOCYTES % (AUTO) 10.9 % (20.0-44.0); MEAN CORPUSCULAR HEMOGLOBIN 26 PG (26.0-33.0); MEAN CORPUSCULAR HGB CONC 31 g/dl (31.0-36.0); MEAN CORPUSCULAR VOLUME 82 fL (80-96); MONOCYTES # (AUTO) 0.9 /CMM (0.1-1.30); MONOCYTES % (AUTO) 7.2 % (2.0-12.0); NEUTROPHILS # (AUTO) 9.3 /CMM (1.8-8.9); NEUTROPHILS % (AUTO) 78.3 % (43.0-81.0); PLATELET COUNT (AUTO) 192 /CMM (150-450); RDW COEFFICIENT OF VARIATION 15.8 (11.5-15.0); RED BLOOD CELL COUNT(AUTO) 4.37 MIL/uL (4.5-6.0); WHITE BLOOD COUNT (AUTO) 11.8 K/uL (4.3-11.0)
[2017-07-04 08:40] LABS: CALCIUM, SERUM 8.6 mg/dL (8.5-10.1); CARBON DIOXIDE 31 mmol/L (21-32); CHLORIDE 100 mmol/L (98-107); CREATININE 1.9 mg/dL (0.6-1.3); GLUCOSE 90 mg/dL (74-106); POTASSIUM 3.3 mmol/L (3.5-5.1); SODIUM SERUM 140 mmol/L (136-145); UREA NITROGEN, BLOOD 68 mg/dL (7-18)
[2017-07-04 08:46] LABS: ALANINE AMINOTRANSFERASE 17 U/L (12-78); ALBUMIN 2.8 g/dL (3.4-5.0); ALKALINE PHOSPHATASE 48 U/L (46-116); ASPARTATE AMINOTRANSFERASE 17 U/L (15-37); BILIRUBIN,TOTAL 0.5 mg/dL (0.2-1.0); MAGNESIUM 1.9 mg/dL (1.8-2.4); PHOSPHORUS 2.9 mg/dL (2.5-4.9); TOTAL PROTEIN, SERUM 5.5 g/dL (6.4-8.2)
[2017-07-04] MEDS ORDERED: POTASSIUM CHLORIDE 20 MEQ TAB.PRT.SR PO SCH (10:00)
--- NOTE | 2017-07-04 10:00 | NUR ---
MS/RN SEEN BY PARTHA PATIENT SEEN BY PARTHA PATTERN SHOP SUPERVISOR WITH ORDERS FOR KCL 20 MEQ X 1 ONLY, ALSO STOOL OB X 1
--- NOTE | 2017-07-04 11:28 | NUR ---
MS/RN SPOKE WITH PARTHA SPOKE WITH PARTHA REVENUE OFFICER AND MADE AWARE PATIENT HAVE NO BM AT THIS TIME. RECEIVED NEW ORDER OF MOM 30 ML PO X 1 NOW. ALSO MADE AWARE REGARDING CONCERNS FOR PATIENT TO BE DISCHARGE TODAY SECONDARY TO PATIENT MIGHT LOOSE HIS BED AT SNF HE CAME FROM. PER PARTHA HE WILL DISCUSS WITH CASE MANAGEMENT.
[2017-07-04] MEDS ORDERED: MAGNESIUM HYDROXIDE 30 ML UDC PO ONE (11:30)
[2017-07-04 16:00] VITALS: BP 115/69
--- NOTE | 2017-07-04 18:13 | NUR ---
MS/RN CLOSING NOTE PATIENT IN BED IN STABLE CONDITION. A/O X 3. NO SIGNS OF ACUTE DISTRESS. NO COMPLAIN OF PAIN OR DISCOMFORT. ALL NEEDS ATTENDED TO. CALL LIGHT WITHIN REACH. WILL ENDORSE TO NEXT SHIFT FOR CONTINUITY OF CARE.
--- NOTE | 2017-07-04 19:30 | NUR ---
RN NOTES RECEIVED PATIENT IN BED WITH EYES CLOSED, EASILY AROUSABLE. AO X 3, ABLE TO MAKE NEEDS KNOWN. NO ACUTE DISTRESS NOTED. DENIES ANY PAIN AT THIS TIME. IV SITE PATENT, INTACT; FLUSHED. SAFETY REMINDERS GIVEN. CONTACT ISOLATION MAINTAINED FOR MRSA NARES. ON LOW BED WITH BILATERAL UPPER SIDE RAILS UP. BED ALARM ON. CALL LIGHT WITHIN EASY REACH. WILL CONTINUE TO MONITOR.
[2017-07-04 20:00] VITALS: BP 112/55
[2017-07-04 20:11] VITALS: BP 112/55
[2017-07-04] MEDS: risperiDONE 0.25 MG TABLET PO SCH (21:34)
[2017-07-04] MEDS: DONEPEZIL 5 MG TABLET PO SCH (21:34)
[2017-07-04] MEDS: ENOXAPARIN SODIUM 40 MG/0.4 ML DISP.SYRIN SQ SCH (21:35)
[2017-07-05] MEDS: LEVOTHYROXINE SODIUM 50 MCG TABLET PO SCH (06:48)
--- NOTE | 2017-07-05 06:58 | NUR ---
RN NOTES PATIENT ASLEEP, EASILY AROUSABLE. RESPIRATIONS EVEN. NO SIGNS OF PAIN NOTED. DUE MEDS GIVEN WITH NO ASE NOTED. NEEDS ATTENDED. KEPT CLEAN AND DRY. SAFETY PRECAUTIONS AND COMFORT MEASURES IN PLACE. WILL GIVE REPORT TO DAY SHIFT FOR CONTINUITY OF CARE.
--- NOTE | 2017-07-05 07:31 | NUR ---
MS RN OPENING NOTE RECEIVED SBAR REPORT AT THE BEDSIDE. PATIENT IS ON CONTACT ISOLATION. PATIENT IS ASLEEP, EASILY AWAKEN. RESPONSIVE TO VOICE AND TOUCH. NO SIGN OF DISTRESS. DENIES PAIN/DISCOMFORT AT THIS TIME. ALL NEEDS ARE MET AT THIS TIME. PATIENT IS IN BED, BED IS LOCKED, IN LOWEST POSITION, SIDE RAILS UP X3, BED ALARM IS ON. CALL LIGHT WITHIN REACH. PATIENT IS EDUCATION TO CALL FOR ASSISTANCE USING THE CALL LIGHT. VERBALIZED UNDERSTANDING. WILL CONTINUE TO ASSESS/MONITOR THROUGHOUT THE SHIFT.
[2017-07-05 08:00] VITALS: BP_SYST 100; BP_SYST 103; BP_DIAS 73; BP_DIAS 75
[2017-07-05 08:18] LABS: EOSINOPHILS # (AUTO) 0.4 /CMM (0.0-0.7); EOSINOPHILS % (AUTO) 3.2 % (0.0-6.0); HEMATOCRIT 37 % (39-51); HEMOGLOBIN 11.4 g/dL (13.5-17.5); MEAN CORPUSCULAR HEMOGLOBIN 26 PG (26.0-33.0); MEAN CORPUSCULAR HGB CONC 31 g/dl (31.0-36.0); MEAN CORPUSCULAR VOLUME 83 fL (80-96); MONOCYTES # (AUTO) 0.9 /CMM (0.1-1.30); MONOCYTES % (AUTO) 7.4 % (2.0-12.0); NEUTROPHILS # (AUTO) 9.2 /CMM (1.8-8.9); NEUTROPHILS % (AUTO) 73.4 % (43.0-81.0); PLATELET COUNT (AUTO) 163 /CMM (150-450); RDW COEFFICIENT OF VARIATION 16.4 (11.5-15.0); RED BLOOD CELL COUNT(AUTO) 4.43 MIL/uL (4.5-6.0); WHITE BLOOD COUNT (AUTO) 12.5 K/uL (4.3-11.0)
[2017-07-05 08:33] LABS: ALANINE AMINOTRANSFERASE 16 U/L (12-78); ALBUMIN 2.7 g/dL (3.4-5.0); ALKALINE PHOSPHATASE 51 U/L (46-116); ASPARTATE AMINOTRANSFERASE 17 U/L (15-37); BILIRUBIN,TOTAL 0.4 mg/dL (0.2-1.0); CALCIUM, SERUM 8.4 mg/dL (8.5-10.1); CARBON DIOXIDE 35 mmol/L (21-32); CHLORIDE 98 mmol/L (98-107); GLUCOSE 83 mg/dL (74-106); MAGNESIUM 2.4 mg/dL (1.8-2.4); PHOSPHORUS 2.6 mg/dL (2.5-4.9); POTASSIUM 4.4 mmol/L (3.5-5.1); SODIUM SERUM 137 mmol/L (136-145); TOTAL PROTEIN, SERUM 5.6 g/dL (6.4-8.2); UREA NITROGEN, BLOOD 69 mg/dL (7-18)
[2017-07-05] MEDS: PYRIDOSTIGMINE BROMIDE 60 MG TABLET PO SCH ×2 (08:59→13:57)
[2017-07-05] MEDS: ASPIRIN 81 MG TAB.CHEW PO SCH (08:59)
[2017-07-05] MEDS: FAMOTIDINE (20 MG) 20 MG TABLET PO SCH (09:00)
[2017-07-05] MEDS: MUPIROCIN OINT 2% 22 GM TUBE SCH (09:02)
[2017-07-05] MEDS: CLOTRIMAZOLE 1% 15 GM TUBE TP SCH (09:03)
--- NOTE | 2017-07-05 09:27 | NUR ---
MS RN NOTE PATIENT'S IV DISLODGED. PARTHA FARIAS LINOLEUM TILE FLOOR LAYER AT THE BEDSIDE AND NOTIFIED. PER PARTHA FARIAS PATIENT IS OK TO STAY WITHOUT IV ACCESS HE IS BEING DISCHARGED AND SENT TO THE FACILITY TODAY.
[2017-07-05] MEDS ORDERED: FURO-145 PO (09:55)
--- NOTE | 2017-07-05 12:57 | NUR ---
MS RN NOTE TELEPHONE REPORT GIVEN TO RAVIN BURROUGHS AT [facility].
--- NOTE | 2017-07-05 13:00 | NUR ---
MS RN NOTE PATIENT'S DEY INFORMED THAT PATIENT'S AMBULANCE MUSICAL INSTRUMENT SUPERVISOR TIME IS SET FOR 3PM.
[2017-07-05 15:20] VITALS: BP 100/56
--- NOTE | 2017-07-05 15:21 | NUR ---
MS YARN MERCERIZER OPERATOR NOTE SBAR REPORT GIVEN TO AMBULANCE STAFF AT THE BEDSIDE. PATIENT IS AWAKE, A/O X2, FORGETFUL, COOPERATIVE. RESPONSIVE TO VOICE AND TOUCH. NO SIGN OF DISTRESS. DENIES PAIN/DISCOMFORT AT THIS TIME. ALL NEEDS ARE MET AT THIS TIME. DISCHARGE INSTRUCTIONS PROVIDED TO PATIENT. DISCHARGE PACKET GIVEN TO AMBULANCE STAFF. PHONE REPORT GIVEN TO RAVIN DELACRUZ AT [facility]. PATIENT'S /DPOA IS NOTIFIED. PATIENT LEFT THE UNIT VIA GURNEY ACCOMPANIED BY THE AMBULANCE STAFF IN A STABLE CONDITION.
== END 2017-07-05 15:30 | DRG 280 ==
LOC: ER 17:42 → TELE 21:07 → MED 06-30 11:36
PROVIDERS: ADMIT Nurse Practitioner Acute Care; ATTEND Nurse Practitioner Acute Care
DX: I21.4 Non-ST elevation (NSTEMI) myocardial infarction (principal); N17.0 Acute kidney failure with tubular necrosis; I50.33 Acute on chronic diastolic (congestive) heart failure; G93.41 Metabolic encephalopathy; J18.9 Pneumonia, unspecified organism; E44.0 Moderate protein-calorie malnutrition; L89.159 Pressure ulcer of sacral region, unspecified stage; D68.59 Other primary thrombophilia; G70.00 Myasthenia gravis without (acute) exacerbation; N18.4 Chronic kidney disease, stage 4 (severe); I13.0 Hypertensive heart and chronic kidney disease with heart failure and stage 1 through stage 4 chronic kidney disease, or unspecified chronic kidney disease; B35.1 Tinea unguium; I48.2 Chronic atrial fibrillation; B35.3 Tinea pedis; E03.9 Hypothyroidism, unspecified; F03.90 Unspecified dementia, unspecified severity, without behavioral disturbance, psychotic disturbance, mood disturbance, and anxiety; K21.9 Gastro-esophageal reflux disease without esophagitis; F32.9 Major depressive disorder, single episode, unspecified; F29 Unspecified psychosis not due to a substance or known physiological condition; G47.00 Insomnia, unspecified; Z88.8 Allergy status to other drugs, medicaments and biological substances; Z79.82 Long term (current) use of aspirin; S91.102A Unspecified open wound of left great toe without damage to nail, initial encounter; X58.XXXA Exposure to other specified factors, initial encounter; Y92.129 Unspecified place in nursing home as the place of occurrence of the external cause; D63.8 Anemia in other chronic diseases classified elsewhere; D50.9 Iron deficiency anemia, unspecified; L30.4 Erythema intertrigo; Z79.899 Other long term (current) drug therapy; Z91.14 Patient's other noncompliance with medication regimen; I70.203 Unspecified atherosclerosis of native arteries of extremities, bilateral legs; I70.0 Atherosclerosis of aorta
CPT/HCPCS: 36415; 71010-TC; 80048-TC; 80053-TC; 80061-TC; 80076-TC; 82272-TC; 82306; 82378; 82728-TC; 82962-TC; 83540-TC; 83735-TC; 83880; 84100-TC; 84439-TC; 84443-TC; 84484-TC; 85025-TC; 87040-TC; 87081-TC; 93307-TC; A4216; A4606; A6402; J0696; J1650; J1940; J2543; J3370; J3490; J7030; J7050; J7060; Z7610

== ENCOUNTER 2017-08-17 19:53 | Inpatient (IN) | payer MEDICARE, BC ==
[~2017-08-17] VITALS: Ht 180.3 cm; Wt 82.6 kg
[~2017-08-17 19:53] MED LIST changes: +ASPI-1169 PO; -ASPI81TA2 PO; -DONE5TAB3 PO; +DONE5TAB7 PO; +FURO-145 PO
--- NOTE | 2017-08-17 20:12 | NUR ---
PT AKILAH FROM [facility]. WAS SENT HERE FOR ABNORMAL LABS AND HYPOTENSION. WBC 45.3. PT HYPOTENSIVE BLOOD BANK WORKER AND IS SATTING ON LOW 80'S BLOOD BANK WORKER. PLACED ON SIMPLE MASK O2 SATURATION IMPROVED TO ALOW 90'S. GOWNED AND PLACED ON MONITOR. AWAITNG MD GORDILLO.
--- NOTE | 2017-08-17 20:35 | NUR ---
IV LINE STARTED BLOOD DRAWN AND SENT TO LAB.
--- NOTE | 2017-08-17 20:50 | NUR ---
REPORT TO LD ALVA FOR AMY.
--- NOTE | 2017-08-17 20:54 | NUR ---
ASSUMED CARE: BREATHING EVEN/LABORED REPS 23 SAT 95% 5L, NS RUNNING OPEN TO R AC, NO INFL=ILTRATED NOTED, HR 91 BP 107/61.
[2017-08-17 20:55] LABS: BASOPHILS % (AUTO) 0.1 % (0.0-2.0); HEMOGLOBIN 12.7 g/dL (13.5-17.5)
[2017-08-17] MEDS ORDERED: CEFEPIME 1 GM VIAL ONE (20:57)
[2017-08-17 21:00] LABS: EOSINOPHILS % (AUTO) 0.1 % (0.0-6.0); HEMATOCRIT 39 % (39-51); LYMPHOCYTES % (AUTO) 2.3 % (20.0-44.0); MEAN CORPUSCULAR HEMOGLOBIN 26 PG (26.0-33.0); MEAN CORPUSCULAR HGB CONC 33 g/dl (31.0-36.0); MEAN CORPUSCULAR VOLUME 80 fL (80-96); MONOCYTES # (AUTO) 0.5 /CMM (0.1-1.30); MONOCYTES % (AUTO) 1.1 % (2.0-12.0); NEUTROPHILS # (AUTO) 43.5 /CMM (1.8-8.9); NEUTROPHILS % (AUTO) 96.4 % (43.0-81.0); PLATELET COUNT (AUTO) 111 /CMM (150-450); RED BLOOD CELL COUNT(AUTO) 4.88 MIL/uL (4.5-6.0)
[2017-08-17] MEDS ORDERED: IV NS 0.9% 1,000 ML BAG IV ONE (21:00)
[2017-08-17] MEDS ORDERED: CEFEPIME 1 GM in IV D5W 50 ML IV ONE (21:00)
[2017-08-17] MEDS ORDERED: VANCOMYCIN 1 GM in IV D5W 250 ML IV ONE (21:00)
[2017-08-17 21:06] LABS: CALCIUM, SERUM 7.9 mg/dL (8.5-10.1); CARBON DIOXIDE 24 mmol/L (21-32); CHLORIDE 107 mmol/L (98-107); CREATININE 2.2 mg/dL (0.6-1.3); GLUCOSE 100 mg/dL (74-106); POTASSIUM 3.6 mmol/L (3.5-5.1); SODIUM SERUM 139 mmol/L (136-145); UREA NITROGEN, BLOOD 36 mg/dL (7-18)
[2017-08-17 21:09] LABS: INR 1.04 (0.87-1.13)
[2017-08-17 21:11] LABS: ALANINE AMINOTRANSFERASE 10 U/L (12-78); ALBUMIN 2.3 g/dL (3.4-5.0); ALKALINE PHOSPHATASE 52 U/L (46-116); ASPARTATE AMINOTRANSFERASE 22 U/L (15-37); BILIRUBIN,DIRECT 0.2 mg/dL (0.0-0.2); BILIRUBIN,TOTAL 0.7 mg/dL (0.2-1.0); TOTAL PROTEIN, SERUM 5.4 g/dL (6.4-8.2)
[2017-08-17] MEDS ORDERED: VANCOMYCIN 1 GM VIAL ONE (21:15)
[2017-08-17 21:20] LABS: TROPONIN I 0.446 ng/mL (0.00-0.056)
[2017-08-17] MEDS ORDERED: ASPIRIN 81 MG TAB.CHEW PO ONE (21:30)
[2017-08-17] MEDS ORDERED: ASPIRIN 81 MG TAB.CHEW ONE (21:38)
[2017-08-17 22:00] LABS: BAND % (MANUAL) 18 % (0.0-5.0); LYMPHOCYTES % (MANUAL) 6 % (16-48); MONOCYTES % (MANUAL) 1 % (0-11.0); NEUTROPHILS % (MANUAL) 75 (42-76)
--- NOTE | 2017-08-17 22:13 | NUR ---
REPROT TO SUZI ALVA. ALL QUESTIONS ANSWERED
--- NOTE | 2017-08-17 22:30 | NUR ---
BANKING SERVICES CLERK RCD PT FROM ER; ADMISSION ORDERS PENDING. AFIB ON MONITOR. O2 5L VIA MASK. MULTIPLE SKIN ISSUES; SEE FLOWSHEET.
[2017-08-17 22:40] VITALS: BP 137/78
[2017-08-17 23:09] VITALS: BP 123/69
[2017-08-18] VITALS (43 sets, daily range): BP systolic 83–155; BP diastolic 28–116
[2017-08-18] MEDS ORDERED: HYDROCODONE/APAP 5/325MG 1 EACH TABLET PO PRN (02:00)
[2017-08-18] MEDS ORDERED: ZOLPIDEM TARTRATE 5 MG TABLET PO PRN (02:00)
[2017-08-18] MEDS ORDERED: ONDANSETRON HCL/PF 4 MG/2 ML VIAL IVP PRN (02:00)
[2017-08-18] MEDS ORDERED: ACETAMINOPHEN 325 MG TABLET PO PRN (02:00)
[2017-08-18] MEDS: IV NS 0.9% 1,000 ML IV PRN ×2 (02:21→17:10)
[2017-08-18] MEDS: ACETYLCYSTEINE 10% SOLN 400 MG/4 ML VIAL NEB SCH ×3 (02:30→23:19)
[2017-08-18] MEDS ORDERED: BUMETANIDE INJ 1 MG in IV NS 0.9% 40 ML IV ONE (02:30)
[2017-08-18] MEDS ORDERED: BUMETANIDE INJ 0.25 MG/ML VIAL ONE (02:32)
[2017-08-18 02:38] LABS: BASOPHILS # (AUTO) 0.3 /CMM (0.0-0.2); BASOPHILS % (AUTO) 0.8 % (0.0-2.0); EOSINOPHILS % (AUTO) 0.1 % (0.0-6.0); HEMATOCRIT 37 % (39-51); HEMOGLOBIN 11.8 g/dL (13.5-17.5); LYMPHOCYTES # (AUTO) 0.9 /CMM (0.8-4.8); LYMPHOCYTES % (AUTO) 2.4 % (20.0-44.0); MEAN CORPUSCULAR HEMOGLOBIN 26 PG (26.0-33.0); MEAN CORPUSCULAR HGB CONC 32 g/dl (31.0-36.0); MEAN CORPUSCULAR VOLUME 80 fL (80-96); MONOCYTES # (AUTO) 0.3 /CMM (0.1-1.30); MONOCYTES % (AUTO) 0.9 % (2.0-12.0); NEUTROPHILS # (AUTO) 34.8 /CMM (1.8-8.9); NEUTROPHILS % (AUTO) 95.8 % (43.0-81.0); PLATELET COUNT (AUTO) 84 /CMM (150-450); RDW COEFFICIENT OF VARIATION 17.8 (11.5-15.0); RED BLOOD CELL COUNT(AUTO) 4.59 MIL/uL (4.5-6.0)
[2017-08-18 02:41] LABS: ABG OXYGEN SATURATION 91.8 % (92.0-98.5); ABG PCO2 32.1 mmHg (35.0-45.0); ABG PH 7.391 (7.350-7.450); ABG PO2 66.5 mmHg (75.0-100.0); AaDO2 181.8 mmHg; COHb 0.3 % (0.5-1.5); MetHb 0.6 % (0.0-1.5); SITE, ABG Right Radial; VENT MODE, BG SIMPLE MASK
[2017-08-18 02:47] LABS: WHITE BLOOD COUNT (AUTO) 36.3 K/uL (4.3-11.0)
[2017-08-18 03:02] LABS: CALCIUM, SERUM 7.1 mg/dL (8.5-10.1); CARBON DIOXIDE 22 mmol/L (21-32); CHLORIDE 112 mmol/L (98-107); CREATININE 2.2 mg/dL (0.6-1.3); GLUCOSE 93 mg/dL (74-106); MAGNESIUM 1.5 mg/dL (1.8-2.4); PHOSPHORUS 3.2 mg/dL (2.5-4.9); POTASSIUM 3.5 mmol/L (3.5-5.1); SODIUM SERUM 146 mmol/L (136-145); UREA NITROGEN, BLOOD 38 mg/dL (7-18)
[2017-08-18 03:10] LABS: BAND % (MANUAL) 12 % (0.0-5.0); LYMPHOCYTES % (MANUAL) 4 % (16-48); MONOCYTES % (MANUAL) 1 % (0-11.0); NEUTROPHILS % (MANUAL) 83 (42-76)
[2017-08-18] MEDS: DILTIAZEM HCL 30 MG TABLET PO SCH ×3 (04:30→21:00)
[2017-08-18] MEDS ORDERED: PIPERACILLIN /TAZOBACTAM 3.375 G VIAL IV ONE (06:18)
[2017-08-18] MEDS: PIPERACILLIN /TAZOBACTAM 3.375 G in IV D5W 50 ML IV SCH ×4 (06:20→23:11)
--- NOTE | 2017-08-18 06:48 | NUR ---
ATTENDING AMBULATORY CARE PT TOLERATED O2 5L VIA MASK WELL. TURNED AND REPOSITIONED Q2HRS.
--- NOTE | 2017-08-18 07:15 | NUR ---
WARD ATTENDANT NOTES RECEIVED PATIENT AOX1 CONFUSE , NOT IN ACUTE DISTRESS , RESPIRATIONS EVEN AND UNLABORED WITH SPO2 OF 100% VIA SIMPLE MASK @ 5LPM , AFIB 76 ON BEDSIDE MONITOR , IV OF L FA # 20 PATENT AND INTACT WITH NS @ 60ML/HR INFUSING WELL , ALL NEEDS ATTENDED , BED ON LOW AND LOCKED POSITION , SIDE RAILS X2 CALL LIGHT WITHIN REACH , HOB @ 35 , WILL CONTINUE TO MONITOR .
[2017-08-18] MEDS ORDERED: ALBUTEROL FS 2.5 MG/3 ML VIAL.NEB ONE (07:25)
[2017-08-18] MEDS: LEVOTHYROXINE SODIUM 50 MCG TABLET PO SCH (07:30)
--- NOTE | 2017-08-18 07:45 | NUR ---
SCHOOL PSYCHOLOGIST ASSISTANT NOTES UNABLE TO INSERT CABRERA CATHETER DUE TO SMALL EXTERNAL URETHRAL ORIFICE ,
[2017-08-18] MEDS: FAMOTIDINE (20 MG) 20 MG TABLET PO SCH (08:08)
[2017-08-18] MEDS: ASPIRIN 81 MG TAB.CHEW PO SCH (08:08)
--- NOTE | 2017-08-18 08:42 | NUR ---
PROSPECTING DRILLER NOTES SEEN AND EVALUATED BY DR KERR , DISCUSSED LABS , CHEST XRAY , ABG RESULT UPON ADMISSION , ON 5LPM SIMPLE MASK WITH SPO2 OF 100% ,WITH NO SIGNS OF DISTRESS , NO PRESSORS , BP OF 105/69 , UNABLE TO OBTAIN URINE CULTURE DUE TO SMALL URETHRAL OPENING , AFEBRILE , PER MD ORDER STAT ABG , ORDERS CARRIED OUT
[2017-08-18] MEDS: MULTIVITAMINS,THERAGRAN 1 UDTAB TABLET PO SCH (09:00)
--- NOTE | 2017-08-18 09:19 | NUR ---
TECHNICIAN PREVENTATIVE MEDICINE NOTES SEEN AND EVALUATED BY WOUND NURSE , AWAITING FOR WOUND TX ORDERS
[2017-08-18 09:48] LABS: ABG BASE EXCESS -5.3 mmol/L; ABG OXYGEN SATURATION 90.4 % (92.0-98.5); ABG PH 7.414 (7.350-7.450); ABG PO2 61.5 mmHg (75.0-100.0); AaDO2 219.2 mmHg; COHb 0.3 % (0.5-1.5); MetHb 0.3 % (0.0-1.5); O2Hb 89.9 % (94.0-97.0); SITE, ABG Right Radial; VENT MODE, BG SIMPLE MASK
--- NOTE | 2017-08-18 09:52 | NUR ---
WOUND CARE CONSULT: PT PRESENTS WITH MULTIPLE SKIN ISSUES PRESENT ON ADMISSION INCLUDING RT AND LEFT BACK AND SACRAL DEEP TISSUE INJURIES (INTACT) AND RT HIP STAGE 2 ULCER, MULTIPLE AREAS OF WEEPING EDEMA, ESPECIALLY RT ARM, BRUISING WITH FRAGILE SKIN TO ARMS AND LEGS, SKIN TEAR TO CHEST AREA AND DUSKY COLOR TO BILATERAL FEET WITH MULTIPLE DRY ABRASIONS TO DORSAL TOES. ASSESSMENT WAS DIFFICULT DUE TO PT BECOMING AGITATED AND COMBATIVE. PT REFUSED ASSESSMENT OF CHEST SKIN TEAR. ALL SKIN PROTECTION AND WOUND RECOMMENDATIONS MADE AND DISCUSSED WITH NURSING STAFF. FIRST STEP MATTRESS ORDERED. WILL SEE PRN. MOORE IN AGREEMENT WITH PLAN OF CARE. CURRENT NOMAN SCORE IS 12. Addendum: 08/18/17 at 0956 by GIANNA ROSE WNDNU Amended: Links added.
[2017-08-18] MEDS ORDERED: HYDROGEL DRESSING 90 GM TUBE TP PRN (10:00)
--- NOTE | 2017-08-18 10:06 | NUR ---
FLATTENING MACHINE OPERATOR NOTES DAUGHTER AGREES TO PROCEED WITH US GUIDED THORACENTESIS OF THE LEFT LUNG , EXPLAINED THE RISK AND BENEFITS OF THE PROCEDURE , DAUGHTER VERBALIZED UNDERSTANDING , AND SIGNED THE CONSENT ,
[2017-08-18] MEDS ORDERED: FEE PK DOSING 1 MIN EA MC ONE (10:21)
--- NOTE | 2017-08-18 10:27 | NUR ---
DERMATOLOGY NURSE NOTES SEEN AND EVALUATED BY DR BANEGAS ,DISCUSSED LABS , CHEST XRAY AND ABG RESULT , ON 8LPM MASK SPO2 OF 100% , AFEBRILE , V/S STABLE , NO PRESSORS AT THIS TIME , NO DIARRHEA NOTED , IVF OF NS @ 100ML/HR , TROPONIN OF 0.862 AT THIS TIME , MD AWARE .
--- NOTE | 2017-08-18 10:30 | NUR ---
DEMAND GENERATION MANAGER NOTES SEEN AND EVALUATED BY DR HOOKER , DISCUSSED LABS , CHEST XRAY , ABG RESULTS ON 5LPM SIMPLE MASK , O2 WAS TITRATED TO 8LPM WITH SPO2 OF 100% , AFEBRILE , NO DIARRHEA NOTED , VS STABLE , NO PRESSORS AT THIS TIME , UNABLE TO INSERT CABRERA CATHETER DUE TO SMALL EXTERNAL URETHRAL OPENING , PT WILL UNDERGO US GUIDED THORACENTECIS OF THE LEFT LUNG , PO MEDS HELD PT IS NPO AND LETHARGIC HIGH ASPIRATION RISK , BILATERAL DORSALIS PEDIS PULSE WEAK UPON PALPATION COLD TO TOUCH UPON ASSESSMENT PER MD ORDER US DOPPLER , ORDERS CARRIED OUT
[2017-08-18] MEDS: METRONIDAZOLE 500 MG TABLET PO SCH ×2 (11:00→21:00)
--- NOTE | 2017-08-18 11:00 | NUR ---
BENCH HAND MACHINE NOTES 929 : BUREAU DIRECTOR AND MD AT BEDSIDE FOR US GUIDED LEFT LUNG THORACENTESIS , CONSENT VERIDIED , NOTIFIED MD REGARDING LABS , WILL CONTINUE TO MONITOR 1000 : PATIENT TOLERATED PROCEDURE WELL WITH NO S/S OF DISTRESS , SPO2 OF 100% VIA 8LPM NC , REMOVED 1480 CLEAR YELLOW PLEURAL FLUID , LEFT UPPER BACK SURGICAL SITE C/D/I WITH NO S/S OF BLEEDING , STAT CHEST XRAY ORDERED , PLEURAL FLUID LABELED AND SENT TO LAB FOR CYTOLOGY 1100 , PT STABLE AT THIS TIME , NO S/S OF DISTRESS , CHEST XRAY RESULT RECEIVED , NO PNEUMOTHORAX ,V/S STABLE AFEBRILE , WILL CONTINUE TO MONITOR ,
[2017-08-18] MEDS: HYDROGEL DRESSING 90 GM TUBE TP SCH (11:52)
[2017-08-18] MEDS ORDERED: Magnesium 1GM/D5W 100ML PREMIX 100 ML IV SCH (12:30)
--- NOTE | 2017-08-18 13:00 | NUR ---
MDS NURSE NOTES SEEN AND EVALUATED BY DR ZAMBRANO , DISCUSSED LABS , CHEST XRAY , ABG , IVF OF NS @ 100ML/HR , S/P BUMEX DRIP AND THORACENTESIS 1.480 L OUT , V/S STABLE , AFEBRILE , NO DIARRHEA NOTED , UNABLE TO PLACE FC DUE TO SMALL EXTERNAL URETHRAL OPENING , MD AWARE
--- NOTE | 2017-08-18 20:30 | NUR ---
FIELD CROP HARVEST CONTRACTOR - REC'D VERBAL REPORT FROM OMAYRA RN. REC'D PT. ON LEFT SIDE. PT. IS REFUSING TO BE TURNED OR ANY ADL'S. EXPLAINED TO PT. THAT HE IS IN ICU & WE NEED TO HELP HIM GET BETTER. PT. LET RN & ASSISTANT LIBRARIAN ASSIST W/REPOSITIONING & DIAPER CHANGED. HEART MONITOR SHOWS AFIB W/SBP'S WNL. PT.IS ON AN 8L/SIMPLE MASK. O2 SATS ARE 100%. BUE'S ARE WEEPING SEROUS FLUIDS. CHUX ARE WRAPPED AROUND EXT. AFEBRILE. DENIES PAIN. PO MEDS WERE HELD DUE TO NPO/SWALLOW EVAL ORDERED IN AM. HIGH RISK FOR ASPIRATION. 2 PIV'S ARE PATENT TO FLUSH W/0.9%NS INFUSING AT 100CC/HR VIA JOHNSON PUMP. CONT. POC.
[2017-08-18] MEDS: VANCOMYCIN 1 GM in IV D5W 250 ML IV SCH (20:35)
[2017-08-18] MEDS: DONEPEZIL 5 MG TABLET PO SCH (22:00)
[2017-08-18] MEDS: ATORVASTATIN 10 MG TABLET PO SCH (22:00)
[2017-08-18] MEDS ORDERED: risperiDONE 0.25 MG TABLET PO SCH (22:00)
[2017-08-19] VITALS (18 sets, daily range): BP systolic 106–125; BP diastolic 55–80
--- NOTE | 2017-08-19 | NUR ---
RN NOTES PATIENT CONTINUES TO BE VERBALLY ABUSIVE TO STAFF, REFUSING TO BE TURNED/REPOSITIONED. IN DEPTH EXPLANATION REGARDING SKIN BREAKDOWN GIVEN TO THE PATIENT, NOW AGREEING TO BE TURNED AND REPOSITIONED. WILL CONTINUE TO CLSOELY MONITOR AND REINFORCE TEACHING NEEDED Addendum: 08/20/17 at 0744 by TERESA WARNER RN WRONG TIME DOCUMENTED, PLEASE DISREGARD
[2017-08-19] MEDS: DILTIAZEM HCL 30 MG TABLET PO SCH ×3 (05:00→21:49)
[2017-08-19] MEDS: METRONIDAZOLE 500 MG TABLET PO SCH ×3 (05:00→21:48)
[2017-08-19 05:18] LABS: HEMATOCRIT 32 % (39-51); HEMOGLOBIN 10.3 g/dL (13.5-17.5); LYMPHOCYTES # (AUTO) 0.7 /CMM (0.8-4.8); LYMPHOCYTES % (AUTO) 2.7 % (20.0-44.0); MEAN CORPUSCULAR HEMOGLOBIN 26 PG (26.0-33.0); MEAN CORPUSCULAR HGB CONC 32 g/dl (31.0-36.0); MEAN CORPUSCULAR VOLUME 80 fL (80-96); MONOCYTES # (AUTO) 0.3 /CMM (0.1-1.30); NEUTROPHILS # (AUTO) 26.4 /CMM (1.8-8.9); NEUTROPHILS % (AUTO) 96.3 % (43.0-81.0); PLATELET COUNT (AUTO) 79 /CMM (150-450); RDW COEFFICIENT OF VARIATION 19.3 (11.5-15.0); RED BLOOD CELL COUNT(AUTO) 3.98 MIL/uL (4.5-6.0); WHITE BLOOD COUNT (AUTO) 27.4 K/uL (4.3-11.0)
[2017-08-19 05:23] LABS: CALCIUM, SERUM 7.4 mg/dL (8.5-10.1); CARBON DIOXIDE 20 mmol/L (21-32); CHLORIDE 110 mmol/L (98-107); CREATININE 2.1 mg/dL (0.6-1.3); GLUCOSE 78 mg/dL (74-106); MAGNESIUM 1.8 mg/dL (1.8-2.4); PHOSPHORUS 3.9 mg/dL (2.5-4.9); POTASSIUM 3.1 mmol/L (3.5-5.1); SODIUM SERUM 143 mmol/L (136-145); UREA NITROGEN, BLOOD 41 mg/dL (7-18)
[2017-08-19] MEDS: IV NS 0.9% 1,000 ML IV PRN ×3 (05:46→21:55)
[2017-08-19] MEDS: PIPERACILLIN /TAZOBACTAM 3.375 G in IV D5W 50 ML IV SCH ×3 (05:48→17:08)
[2017-08-19 06:07] LABS: BAND % (MANUAL) 7 % (0.0-5.0); LYMPHOCYTES % (MANUAL) 3 % (16-48); MONOCYTES % (MANUAL) 2 % (0-11.0); NEUTROPHILS % (MANUAL) 88 (42-76)
--- NOTE | 2017-08-19 06:45 | NUR ---
LINEN ROOM WORKER - COMP. BEDBATH DONE AT 5AM W/ORAL,JANINE & SKIN/WOUND CARE ADM. AM LABS DRAWN-PENDING RESULTS. ARTERIAL DUPLEX STUDIES DONE AT START OF SHIFT. PENDING RESULTS.NO CHANGES FROM PREVIOUS ASSESSMENT.
--- NOTE | 2017-08-19 07:11 | NUR ---
TRAINING AND DEVELOPMENT PROFESSIONAL NOTES RECEIVED PATIENT AOX 1-2 CONFUSE , NOT IN ACUTE DISTRESS , RESPIRATIONS EVEN AND UNLABORED WITH SPO2 OF 100% VIA SIMPLE MASK @ 8LPM , AFIB 80 ON BEDSIDE MONITOR , IV OF R FA # 20 PATENT AND INTACT WITH NS @ 100ML/HR INFUSING WELL , LFA # 20 PATENT AND INTACT, WOUND DRESSING C/D/I , ALL NEEDS ATTENDED , BED ON LOW AND LOCKED POSITION , SIDE RAILS X2 CALL LIGHT WITHIN REACH , HOB @ 35 , WILL CONTINUE TO MONITOR .
[2017-08-19] MEDS: ACETYLCYSTEINE 10% SOLN 400 MG/4 ML VIAL NEB SCH ×3 (07:21→23:15)
[2017-08-19] MEDS: LEVOTHYROXINE SODIUM 50 MCG TABLET PO SCH (07:30)
--- NOTE | 2017-08-19 08:30 | NUR ---
BRICKMASON CONTRACTOR NOTES O2 TITRATED DOWN FROM 8LPM SIMPLE MASK TO 4LPM NC SPO2 OF 100% WITH NO SIGNS OF DISTRESS , TOLERATING WELL , V/S STABLE .
[2017-08-19] MEDS: MULTIVITAMINS,THERAGRAN 1 UDTAB TABLET PO SCH (09:00)
[2017-08-19] MEDS: FAMOTIDINE (20 MG) 20 MG TABLET PO SCH (09:00)
[2017-08-19] MEDS: ASPIRIN 81 MG TAB.CHEW PO SCH (09:00)
--- NOTE | 2017-08-19 09:00 | NUR ---
DAIRY QUALITY ASSURANCE OFFICER NOTES SEEN AND EVALUATED BY DR KERR , DISCUSSED LABS , CULTURE RESULTS , S/P THORACENTESIS OF LEFT LUNG REMOVED 1480 PLEURAL FLUID , V/S STABLE , AFEBRILE , NO DIARRHEA NOTED , TOLERATING 4LPM NC WITH SPO2 OF 100% ,
--- NOTE | 2017-08-19 09:15 | NUR ---
DOCUMENT MANAGEMENT SPECIALIST NOTES SEEN AND EVALUATED BY DR HOOKER , DISCUSSED LABS , ARTERIAL DOPPLER STUDIES RESULT , CURRENT VITALS SIGNS , AFEBRILE , NO DIARRHEA NOTED , ON 4LPM NC SPO2 OF 100% WITH NO S/S IF DISTRESS , UNABLE TO INSERT CABRERA DUE TO SMALL EXTERNAL URETERAL OPENING , PER MD INSERT CAUDATE FC . AND PT OK TO DOWNGRADE TO KISHAN
[2017-08-19] MEDS: HYDROGEL DRESSING 90 GM TUBE TP SCH (09:20)
[2017-08-19] MEDS: Z GUARD REMEDY 2 OZ OINT TP PRN (09:20)
[2017-08-19] MEDS ORDERED: POTASSIUM CL. PREMIX PERIPHER. 50 ML IV SCH (09:30)
--- NOTE | 2017-08-19 09:30 | NUR ---
GENERAL PURCHASING AGENT NOTES SEEN AND EVALUATED BY DR BANEGAS , DISCUSSED LABS , CURRENT VITALS SIGNS , AFEBRILE , PT ON IVF OF NS @ 100ML/HR , ON 4LPM NC SPO2 OF 100% , PER MD DECREASE IVF RATE TO NS @ 50ML/HR , ORDER CARRIED OUT
[2017-08-19] MEDS: POTASSIUM CL. PREMIX PERIPHER. 50 ML IV SCH ×4 (11:24→13:57)
--- NOTE | 2017-08-19 11:30 | NUR ---
DRILL BIT SHARPENER NOTES NGT AND CAUDATE CABRERA CATHETER INSERTED ORDERED , PATIENT TOLERATED WELL , PLACEMENT VERIFIED BY 2 RN'S NOTED WITH GURGLING SOUND AROUND STOMACH REGION , FC DRAINING WELL VIA GRAVITY WITH CLEAR YELLOW URINE , NO BLEEDING NOTED , WILL ORDER CHEST XRAY TO VERIFY NGT PLACEMENT
--- NOTE | 2017-08-19 13:10 | NUR ---
GROUT PUMP OPERATOR NOTES ADVANCE NGT PER RADIOLOGIST REPORT , ASPIRATED NOTED WITH GREENISH OUTPUT , AUSCULTATED AND VERIFY PLACEMENT WITH ANOTHER RN NOTED GURGLING SOUND AROUND STOMACH AREA .
--- NOTE | 2017-08-19 14:55 | NUR ---
ANTHROPOLOGIST PHYSICAL NOTES REPORT GIVEN TO DRISS FOR CONTINUITY OF CARE . ALL QUESTIONS ANSWERED ,
--- NOTE | 2017-08-19 15:00 | NUR ---
RN INITIAL NOTE PT TRANSFERRED FROM ICU . SKIN TEAR RFA NOTED PHOTO TAKEN. PT STABLE V/S WNL. ALL SAFETY MEASURES IN PLACE. WILL CONTINUE TO MONITOR CLOSELY.
[2017-08-19 15:03] LABS: APPEARANCE,URINE SL CLOUDY (CLEAR); BILIRUBIN,URINE NEGATIVE (NEGATIVE); BLOOD, URINE 1+ Ery/uL (NEGATIVE); COLOR,URINE YELLOW (YELLOW); KETONES,URINE NEGATIVE (NEGATIVE); LEUKOCYTE ESTERASE ,URINE 2+ (NEGATIVE); NITRITE, URINE NEGATIVE (NEGATIVE); PH,URINE 5.5 (5.0-8.0); PROTEIN,URINE NEGATIVE (NEGATIVE); UGLUCOSE NEGATIVE (NEGATIVE); UROBILINOGEN,URINE 0.2 EU/dL (0.2)
[2017-08-19 15:27] LABS: BACTERIA,URINE Few /HPF (None Seen); SQUAMOUS EPITHELIAL CELL,UR Rare /HPF (None Seen); WBC,URINE 21-50 /HPF (0-3)
--- NOTE | 2017-08-19 19:30 | NUR ---
RN NOTES RECEIVED PATIENT IN BED, AWAKE, ALERT AND ORIENTED X1, VERBALLY ABUSIVE, DEMANDING THAT STAFF LEAVE THE ROOM. BREATHING EVEN AND NONLABORED, TOLERATING O2 VIA NC @2LPM, TOLERATING WELL, FREE FROM ANY S/S OF RESPIRATORY DISTRESS. IV SITE X2 PATENT AND INTACT, FLUSHED WITH NS, ONGOING IVF ORDERED, TOLERATING WELL, SITE FREE FROM ANY S/S OF INFILTRATION OR PHLEBITIS. L NARE NGT PATENT AND INTACT, FLUSHED, AUSCULTATED FOR PLACEMENT, NO RESIDUALS AT THIS TIME. NOTED WITH MULTIPLE SKIN TEARS THROUGHOUT BODY. CALL LIGHT LEFT WITHIN EASY REACH, BED IN LOWEST AND LOCKED POSITION. WILL CONTINUE TO CLOSELY MONITOR
[2017-08-19] MEDS: ATORVASTATIN 10 MG TABLET PO SCH (21:48)
[2017-08-19] MEDS: DONEPEZIL 5 MG TABLET PO SCH (21:48)
[2017-08-19] MEDS: VANCOMYCIN 1 GM in IV D5W 250 ML IV SCH (21:49)
[2017-08-20] VITALS: BP 116/73
--- NOTE | 2017-08-20 | NUR ---
RN NOTES PATIENT CONTINUES TO BE VERBALLY ABUSIVE TO STAFF, REFUSING TO BE TURNED/REPOSITIONED. IN DEPTH EXPLANATION REGARDING SKIN BREAKDOWN GIVEN TO THE PATIENT, NOW AGREEING TO BE TURNED AND REPOSITIONED. WILL CONTINUE TO CLSOELY MONITOR AND REINFORCE TEACHING NEEDED
[2017-08-20] MEDS: PIPERACILLIN /TAZOBACTAM 3.375 G in IV D5W 50 ML IV SCH ×2 (00:38→05:55)
[2017-08-20 04:00] VITALS: BP 111/69
[2017-08-20] MEDS: DILTIAZEM HCL 30 MG TABLET PO SCH ×3 (05:55→21:04)
[2017-08-20] MEDS: METRONIDAZOLE 500 MG TABLET PO SCH ×3 (05:55→20:53)
[2017-08-20 06:51] LABS: BASOPHILS % (AUTO) 0.1 % (0.0-2.0); EOSINOPHILS # (AUTO) 0.2 /CMM (0.0-0.7); HEMATOCRIT 29 % (39-51); HEMOGLOBIN 9.4 g/dL (13.5-17.5); LYMPHOCYTES # (AUTO) 1.7 /CMM (0.8-4.8); MEAN CORPUSCULAR HEMOGLOBIN 26 PG (26.0-33.0); MEAN CORPUSCULAR HGB CONC 33 g/dl (31.0-36.0); MEAN CORPUSCULAR VOLUME 78 fL (80-96); MONOCYTES # (AUTO) 0.4 /CMM (0.1-1.30); MONOCYTES % (AUTO) 1.7 % (2.0-12.0); NEUTROPHILS # (AUTO) 18.4 /CMM (1.8-8.9); NEUTROPHILS % (AUTO) 89.2 % (43.0-81.0); PLATELET COUNT (AUTO) 73 /CMM (150-450); RDW COEFFICIENT OF VARIATION 17.7 (11.5-15.0); RED BLOOD CELL COUNT(AUTO) 3.69 MIL/uL (4.5-6.0); WHITE BLOOD COUNT (AUTO) 20.7 K/uL (4.3-11.0)
--- NOTE | 2017-08-20 07:00 | NUR ---
RN CLOSING NOTES PATIENT SLEEPING IN BED AT THIS TIME, APPEARS COMFORTABLE. WILL ENDORSE THE PATIENT TO THE AM SHIFT NURSE FOR AMY
[2017-08-20 07:19] LABS: CALCIUM, SERUM 7.3 mg/dL (8.5-10.1); CARBON DIOXIDE 18 mmol/L (21-32); CHLORIDE 111 mmol/L (98-107); CREATININE 2.1 mg/dL (0.6-1.3); GLUCOSE 58 mg/dL (74-106); MAGNESIUM 1.6 mg/dL (1.8-2.4); PHOSPHORUS 3.6 mg/dL (2.5-4.9); POTASSIUM 3.1 mmol/L (3.5-5.1); SODIUM SERUM 143 mmol/L (136-145); UREA NITROGEN, BLOOD 43 mg/dL (7-18)
--- NOTE | 2017-08-20 07:30 | NUR ---
KISHAN RN AM NOTES RECEIVED PATIENT IN BED, AWAKE, ALERT AND ORIENTED X1, APPEARS CALM, OPENS EYES TO NAME AND TOUCH, BREATHING EVEN AND NONLABORED, TOLERATING O2 VIA NC @2LPM, TOLERATING WELL, FREE FROM ANY S/S OF RESPIRATORY DISTRESS. TELEMETRY READS AFIB HR 68. LFA G20 IV ACCESS LEAKING, WILL REMOVED. RFA G20 WITH NS AT 50 ML/HR INFUSING WELL, SITE CLEAR. L NARE NGT CHECKED FOR PATENCY AND PLACEMENT WITH COLLEAGUE LEVON ALVA, NO RESIDUALS AT THIS TIME. NOTED WITH MULTIPLE SKIN TEARS THROUGHOUT BODY. CALL LIGHT LEFT WITHIN EASY REACH, BED IN LOWEST AND LOCKED POSITION. WILL CONTINUE TO CLOSELY MONITOR
[2017-08-20] MEDS: ACETYLCYSTEINE 10% SOLN 400 MG/4 ML VIAL NEB SCH ×3 (07:35→23:30)
[2017-08-20 08:00] VITALS: BP 109/64
[2017-08-20] MEDS: HYDROGEL DRESSING 90 GM TUBE TP SCH (08:19)
[2017-08-20] MEDS: MULTIVITAMINS,THERAGRAN 1 UDTAB TABLET PO SCH (08:19)
[2017-08-20] MEDS: FAMOTIDINE (20 MG) 20 MG TABLET PO SCH (08:19)
[2017-08-20] MEDS: ASPIRIN 81 MG TAB.CHEW PO SCH (08:19)
[2017-08-20] MEDS: LEVOTHYROXINE SODIUM 50 MCG TABLET PO SCH (08:19)
--- NOTE | 2017-08-20 09:00 | NUR ---
KISHAN RN NOTES DUE MEDS GIVEN.
[2017-08-20 09:19] LABS: BAND % (MANUAL) 3 % (0.0-5.0); LYMPHOCYTES % (MANUAL) 4 % (16-48); MONOCYTES % (MANUAL) 5 % (0-11.0); NEUTROPHILS % (MANUAL) 88 (42-76)
[2017-08-20] MEDS ORDERED: Magnesium 1GM/D5W 100ML PREMIX 100 ML IV SCH (09:48)
--- NOTE | 2017-08-20 09:48 | NUR ---
KISHAN RN NOTES MAGNESIUM BAG #1 GIVEN.
--- NOTE | 2017-08-20 11:30 | NUR ---
KISHAN NOTES SPOKE TO [facility] RE SCHEDULED POTASSIUM CL PREMIX NOT AVAILABLE IN [place], PER HER WILL NEED TO MAKE THEM. MEDICATIONS OFF SCHEDULED TIME.
[2017-08-20 12:00] VITALS: BP 115/76
[2017-08-20] MEDS: POTASSIUM CL. PREMIX PERIPHER. 50 ML IV SCH ×3 (12:11→14:18)
[2017-08-20] MEDS: PIPERACILLIN /TAZOBACTAM 2.25 G in IV D5W 50 ML IV SCH ×3 (12:13→23:34)
--- NOTE | 2017-08-20 12:13 | NUR ---
KISHAN RN NOTES KCL IV BAG #1 STARTED LATE DUE TO MEDICATION DELIVERED LATE. BAG #2 AND bAG 3 TO FOLLOW ACCORDINGLY. ZOSYN IV STARTED.
[2017-08-20 16:00] VITALS: BP 116/72
--- NOTE | 2017-08-20 17:42 | NUR ---
KISHAN RN NOTES ZOYN IV STARTED.
--- NOTE | 2017-08-20 18:54 | NUR ---
KISHAN RN CLOSING NOTES. PATIENT RESTING COMFORTABLY, NOT IN ANY DISTRESS. O2 [address] TELEMETRY READS AFIB HR 59. DENIES PAIN. NGT PATENT AND INTACT. LUIS MIDLINE G 20 AND RFA G 20 BOTH FLUSHES WELL,SITE CLEAR. ALL NEEDS MET. PERFORMED PRESCRIBED WOUND TREATMENT. PM CARE. TURNED AND REPOSITIONED Q 2HOURS. NO OTHER SIGNIFICANT CHANGE IN CONDITION. WILL ENDORSE TO NEXT SHIFT FOR AMY.
[2017-08-20 20:00] VITALS: BP 136/83
--- NOTE | 2017-08-20 20:00 | NUR ---
summer rn notes pts on bed awake and responsive , on tele [id number] on the monitor , on 4liters of o2 via nc, sating 100 % pts remains npo except meds,with ngt clamped as ordered, all due meds given as ordered hob elevated for aspiration precaution. turned and reposition q2hrs and prn.all needs attended too ,call light within reach. with bird midline intact and patent,with f/c intact and patent draining with yellowish urine output.
[2017-08-20] MEDS: VANCOMYCIN 1 GM in IV D5W 250 ML IV SCH (21:00)
--- NOTE | 2017-08-20 21:00 | NUR ---
summer rn notes vanco dose for 9pm is hold d/t vanco trough is 22
[2017-08-20] MEDS: ATORVASTATIN 10 MG TABLET PO SCH (21:03)
[2017-08-20] MEDS: DONEPEZIL 5 MG TABLET PO SCH (21:03)
--- NOTE | 2017-08-20 22:00 | NUR ---
summer rn notes pts on tele afib with bbb on the monitor
[2017-08-21] VITALS: BP_SYST 121; BP_SYST 132; BP_DIAS 66; BP_DIAS 87
[2017-08-21 04:00] VITALS: BP 139/88
[2017-08-21] MEDS: DILTIAZEM HCL 30 MG TABLET PO SCH ×3 (05:14→21:24)
[2017-08-21] MEDS: PIPERACILLIN /TAZOBACTAM 2.25 G in IV D5W 50 ML IV SCH ×3 (05:15→18:01)
[2017-08-21] MEDS: METRONIDAZOLE 500 MG TABLET PO SCH ×3 (05:15→21:24)
--- NOTE | 2017-08-21 07:30 | NUR ---
KISHAN RN AM NOTES RECEIVED PATIENT IN BED, AWAKE, ALERT AND ORIENTED X1, APPEARS CALM, OPENS EYES TO NAME AND TOUCH, BREATHING EVEN AND NONLABORED, TOLERATING O2 VIA NC @2LPM, TOLERATING WELL, FREE FROM ANY S/S OF RESPIRATORY DISTRESS. TELEMETRY READS AFIB BBB HR 72. RFA G20 IV ACCESS AND LUIS MIDLINE G 20 FLUSHES WELL, BOTH SITES CLEAR. L NARE NGT PULLED OUT. WILL PUT BACK. NOTED WITH MULTIPLE SKIN TEARS THROUGHOUT BODY. CALL LIGHT LEFT WITHIN EASY REACH, BED IN LOWEST AND LOCKED POSITION. WILL CONTINUE TO CLOSELY MONITOR
[2017-08-21] MEDS: ACETYLCYSTEINE 10% SOLN 400 MG/4 ML VIAL NEB SCH ×3 (07:35→23:22)
--- NOTE | 2017-08-21 07:52 | NUR ---
MUCUMYST NOT AVAILABLE. NOTIFIED CHARGED NURSE SOON.
[2017-08-21 07:57] LABS: CALCIUM, SERUM 7.8 mg/dL (8.5-10.1); CARBON DIOXIDE 19 mmol/L (21-32); CHLORIDE 112 mmol/L (98-107); CREATININE 2.1 mg/dL (0.6-1.3); GLUCOSE 68 mg/dL (74-106); POTASSIUM 3.2 mmol/L (3.5-5.1); SODIUM SERUM 145 mmol/L (136-145); UREA NITROGEN, BLOOD 41 mg/dL (7-18)
[2017-08-21 08:00] VITALS: BP 137/84
[2017-08-21] MEDS: LEVOTHYROXINE SODIUM 50 MCG TABLET PO SCH (09:08)
[2017-08-21] MEDS: FAMOTIDINE (20 MG) 20 MG TABLET PO SCH (09:08)
[2017-08-21] MEDS: MULTIVITAMINS,THERAGRAN 1 UDTAB TABLET PO SCH (09:08)
[2017-08-21] MEDS: ASPIRIN 81 MG TAB.CHEW PO SCH (09:08)
[2017-08-21] MEDS: HYDROGEL DRESSING 90 GM TUBE TP SCH (09:09)
--- NOTE | 2017-08-21 09:30 | NUR ---
KISHAN RN NOTES ADMINISTERED DUE MEDS. NGT CHECKED WITH COLLEAGUE ANIKET ALVA.
--- NOTE | 2017-08-21 11:30 | NUR ---
RN NOTES PER DR. HOOKER TO REMOVE NGT. PATIENT TO BE STARTED ON PUREED DIET PER SWALLOW EVAL FOLLOW UP.
[2017-08-21 12:00] VITALS: BP 140/89
[2017-08-21] MEDS: POTASSIUM CHLORIDE 20 MEQ POWDER PACKET PO SCH ×2 (12:06→13:56)
--- NOTE | 2017-08-21 12:06 | NUR ---
KISHAN RN NOTES ZOSYN IV STARTED.
[2017-08-21] MEDS ORDERED: POTASSIUM CHLORIDE 20 MEQ POWDER PACKET NG SCH (12:30)
--- NOTE | 2017-08-21 12:42 | NUR ---
SUPERVISORY TRAINING SPECIALIST NOTES DC KISHAN PER SARAI RYAN
[2017-08-21] MEDS: FUROSEMIDE 100 MG/10 ML VIAL IV SCH ×3 (13:39→21:25)
[2017-08-21 16:00] VITALS: BP 126/76
[2017-08-21] MEDS: VANCOMYCIN 0.75 GM in IV D5W 250 ML IV SCH (16:26)
--- NOTE | 2017-08-21 16:26 | NUR ---
ICER HAND NOTES STARTED VANCO IV.
--- NOTE | 2017-08-21 18:01 | NUR ---
RN NOTES ZOYN IV STARTED.
[2017-08-21 20:00] VITALS: BP 139/100
[2017-08-21] MEDS: DONEPEZIL 5 MG TABLET PO SCH (21:24)
[2017-08-21] MEDS: ATORVASTATIN 10 MG TABLET PO SCH (21:24)
[2017-08-21] MEDS: IPRATROPIUM NEB FS 0.5 MG/2.5 ML AMPUL.NEB NEB PRN (23:22)
[2017-08-21] MEDS: ALBUTEROL FS 2.5 MG/0.5 ML VIAL.NEB NEB PRN (23:22)
[2017-08-22] VITALS: BP_SYST 132; BP_SYST 139; BP_DIAS 100; BP_DIAS 87
[2017-08-22] MEDS: PIPERACILLIN /TAZOBACTAM 2.25 G in IV D5W 50 ML IV SCH ×4 (00:11→17:49)
[2017-08-22 04:00] VITALS: BP 112/64
[2017-08-22] MEDS: METRONIDAZOLE 500 MG TABLET PO SCH ×3 (05:00→21:07)
[2017-08-22] MEDS: DILTIAZEM HCL 30 MG TABLET PO SCH ×3 (05:00→21:06)
[2017-08-22] MEDS: LEVOTHYROXINE SODIUM 50 MCG TABLET PO SCH (07:30)
[2017-08-22] MEDS: ACETYLCYSTEINE 10% SOLN 400 MG/4 ML VIAL NEB SCH ×3 (07:36→22:41)
--- NOTE | 2017-08-22 07:36 | NUR ---
RT MEDICATION SCANNED. PATIENT REFUSED TX UPON PLACING MASK. PATIENT HAD NO SOB.
[2017-08-22 08:00] VITALS: BP 118/73
[2017-08-22] MEDS: ASPIRIN 81 MG TAB.CHEW PO SCH (08:17)
[2017-08-22] MEDS: FAMOTIDINE (20 MG) 20 MG TABLET PO SCH (08:18)
[2017-08-22] MEDS: MULTIVITAMINS,THERAGRAN 1 UDTAB TABLET PO SCH (08:18)
[2017-08-22] MEDS: HYDROGEL DRESSING 90 GM TUBE TP SCH (08:19)
--- NOTE | 2017-08-22 08:30 | NUR ---
RN NOTE PT REFUSED TO TAKEN MORNING MEDICATION. PT STATED HE WANTED TO EAT. GAVE A SPOON FULL OF FOOD AND THEN STATED HE DID NOT WANT ANY MORE.
[2017-08-22] MEDS ORDERED: POTASSIUM CHLORIDE 20 MEQ TAB.PRT.SR PO ONE (10:00)
[2017-08-22 12:00] VITALS: BP 120/85
[2017-08-22 12:17] LABS: EOSINOPHILS % (AUTO) 0.2 % (0.0-6.0); HEMATOCRIT 34 % (39-51); HEMOGLOBIN 10.9 g/dL (13.5-17.5); LYMPHOCYTES # (AUTO) 0.8 /CMM (0.8-4.8); LYMPHOCYTES % (AUTO) 6.4 % (20.0-44.0); MEAN CORPUSCULAR HEMOGLOBIN 25 PG (26.0-33.0); MEAN CORPUSCULAR HGB CONC 32 g/dl (31.0-36.0); MEAN CORPUSCULAR VOLUME 79 fL (80-96); MONOCYTES # (AUTO) 0.6 /CMM (0.1-1.30); MONOCYTES % (AUTO) 4.6 % (2.0-12.0); NEUTROPHILS # (AUTO) 11.2 /CMM (1.8-8.9); NEUTROPHILS % (AUTO) 88.8 % (43.0-81.0); PLATELET COUNT (AUTO) 81 /CMM (150-450); RDW COEFFICIENT OF VARIATION 19.1 (11.5-15.0); RED BLOOD CELL COUNT(AUTO) 4.33 MIL/uL (4.5-6.0); WHITE BLOOD COUNT (AUTO) 12.6 K/uL (4.3-11.0)
[2017-08-22 12:42] LABS: LYMPHOCYTES % (MANUAL) 6 % (16-48); MONOCYTES % (MANUAL) 4 % (0-11.0); NEUTROPHILS % (MANUAL) 90 (42-76)
[2017-08-22 12:51] LABS: ALANINE AMINOTRANSFERASE 14 U/L (12-78); ALBUMIN 1.9 g/dL (3.4-5.0); ALKALINE PHOSPHATASE 56 U/L (46-116); ASPARTATE AMINOTRANSFERASE 15 U/L (15-37); BILIRUBIN,TOTAL 0.9 mg/dL (0.2-1.0); CARBON DIOXIDE 21 mmol/L (21-32); CHLORIDE 109 mmol/L (98-107); CREATININE 2.2 mg/dL (0.6-1.3); GLUCOSE 87 mg/dL (74-106); MAGNESIUM 1.6 mg/dL (1.8-2.4); PHOSPHORUS 3.3 mg/dL (2.5-4.9); POTASSIUM 2.9 mmol/L (3.5-5.1); SODIUM SERUM 144 mmol/L (136-145); TOTAL PROTEIN, SERUM 5.2 g/dL (6.4-8.2); UREA NITROGEN, BLOOD 39 mg/dL (7-18)
[2017-08-22] MEDS: VANCOMYCIN 0.75 GM in IV D5W 250 ML IV SCH (15:00)
--- NOTE | 2017-08-22 15:20 | NUR ---
RT PATIENT REFUSED TX AT THIS TIME. EXPLAINED RISKS AND BENEFITS. NO SOB NOTED.
--- NOTE | 2017-08-22 15:38 | NUR ---
RN NOTE VANCO TROUGH 26 PER PHARMACY NOT GIVEN VANCO IV TODAY.
[2017-08-22 16:00] VITALS: BP 119/79
[2017-08-22] MEDS ORDERED: LACTOSE-FREE FOOD 237 ML LIQUID PO SCH (17:00)
[2017-08-22] MEDS: BOOST PLUS FOOD-CHOCLATE 237 ML BOX PO SCH (18:00)
[2017-08-22] MEDS: POTASSIUM CL. PREMIX PERIPHER. 50 ML IV SCH ×4 (19:12→23:13)
--- NOTE | 2017-08-22 19:30 | NUR ---
RN NOTE; RECEIVED PT IN BED AWAKE, BREATHING EVENLY. NO SOB. NAD . SKIN WARM AND DRY, A FIB ON TELE MONITOR. RECEIVING KCL IV. MIDLINE ON LUIS INTACT AND PATENT W/ GOOD BLOOD REDRAW, NO S/S OR C/O PAIN OR DISCOMFORT NOTED. NEEDS ATTENDED . CALL LIGHT WITHIN REACH. WILL CONT TO MONITOR.
[2017-08-22 20:00] VITALS: BP 117/85
[2017-08-22] MEDS: ATORVASTATIN 10 MG TABLET PO SCH (21:06)
[2017-08-22] MEDS: DONEPEZIL 5 MG TABLET PO SCH (21:07)
[2017-08-23] VITALS: BP 119/72
[2017-08-23] MEDS: PIPERACILLIN /TAZOBACTAM 2.25 G in IV D5W 50 ML IV SCH ×4 (00:27→17:08)
[2017-08-23 04:15] VITALS: BP 123/79
[2017-08-23] MEDS: DILTIAZEM HCL 30 MG TABLET PO SCH ×3 (05:05→20:30)
[2017-08-23] MEDS: METRONIDAZOLE 500 MG TABLET PO SCH ×3 (05:05→20:29)
--- NOTE | 2017-08-23 06:30 | NUR ---
RN NOTE; PT IN BED SLEEPING AROUSES EASILY. BREATHING EVENLY. NO SOB. NAD. SKIN WARM AND DRY, NO ACUTE EVENT DURING THE NIGHT, AFEBRILE. F/C IN PLACE DRAINING CLEAR YELLOW URINE. PT WAS CLEANED AND DRIED. REPOSITIONED ROUTINELY. BED LOW LOCKED. CALL LIGHT WITHIN REACH. WILL CONT TO MONITOR AND WILL ENDORSE TO AM SHIFT FOR AMY.
[2017-08-23] MEDS: ACETYLCYSTEINE 10% SOLN 400 MG/4 ML VIAL NEB SCH ×3 (07:16→22:59)
--- NOTE | 2017-08-23 07:16 | NUR ---
RT PATIENT AWAKE/ALERT. PATIENT REFUSED TX AT THIS TIME, EXPLAINED RISKS AND BENEFITS. PATIENT RESTING COMFORTABLY. NO SOB NOTED.
--- NOTE | 2017-08-23 07:33 | NUR ---
RN NOTES RECEIVED PT FROM DATA ENTRY, A&0X1, ON 3L NC SATING WELL, NO SOB OR DISTRESS. A FIB ON THE TELE GRETTA HR 89. CABRERA DRAINING TO GRAVITY, YELLOW IN COLOR. LUIS MIDLINE INTACT NO IVF. BED LOCKED AND IN LOWEST POSITION, CALL LIGHT WITHIN REACH, SIDE RAILS UPX3, WILL CONT TO GRETTA.
[2017-08-23 08:00] VITALS: BP 107/78
[2017-08-23] MEDS: LEVOTHYROXINE SODIUM 50 MCG TABLET PO SCH (08:18)
[2017-08-23] MEDS: MULTIVITAMINS,THERAGRAN 1 UDTAB TABLET PO SCH (08:18)
[2017-08-23] MEDS: FAMOTIDINE (20 MG) 20 MG TABLET PO SCH (08:18)
[2017-08-23] MEDS: ASPIRIN 81 MG TAB.CHEW PO SCH (08:18)
[2017-08-23] MEDS: BOOST PLUS FOOD-CHOCLATE 237 ML BOX PO SCH ×2 (08:19→17:08)
[2017-08-23] MEDS: HYDROGEL DRESSING 90 GM TUBE TP SCH (08:19)
[2017-08-23 08:46] LABS: CARBON DIOXIDE 23 mmol/L (21-32); CHLORIDE 109 mmol/L (98-107); CREATININE 2.3 mg/dL (0.6-1.3); GLUCOSE 147 mg/dL (74-106); POTASSIUM 3.5 mmol/L (3.5-5.1); SODIUM SERUM 143 mmol/L (136-145); UREA NITROGEN, BLOOD 40 mg/dL (7-18); VANCOMYCIN,TROUGH 24 ug/ml (12-20)
[2017-08-23 12:00] VITALS: BP 124/83
--- NOTE | 2017-08-23 15:05 | NUR ---
PATIENT REFUSED TX AT THIS TIME, EXPLAINED RISKS AND BENEFITS. PATIENT RESTING COMFORTABLY ON 28% NASAL CANNULA. NO SOB NOTED.
[2017-08-23 16:00] VITALS: BP 113/81
--- NOTE | 2017-08-23 18:46 | NUR ---
RN NOTES PT REMAINED IN STABLE CONDITION THROUGHOUT THE SHIFT, NO SIGNIFICANT CHANGES, ALL NEEDS MET. WILL ENDORSE TO ONCOMING SHIFT.
--- NOTE | 2017-08-23 19:43 | NUR ---
RN OPENING NOTE RECEIVED PATIENT IN BED, ASLEEP, NO S/S OF DISTRESS NOTED, NO S/S OF PAIN OR DISCOMFORT NOTED, LUIS MIDLINE, FLUSHES WELL, NO S/S OF INFILTRATION, INFECTION NOTED, BED IN THE LOW POSITION, BED ALARM ACTIVATED, WILL CONTINUE TO MONITOR
[2017-08-23 20:00] VITALS: BP 117/75
[2017-08-23] MEDS: ATORVASTATIN 10 MG TABLET PO SCH (22:00)
[2017-08-23] MEDS: DONEPEZIL 5 MG TABLET PO SCH (22:00)
--- NOTE | 2017-08-23 22:36 | NUR ---
RN NOTE PATIENT REFUSED MEDICATIONS, PATIENT IS ALERT/ORIENTED, OFFERED TWICE, EXPLAINED ALL THE RISK AND THE BENEFITS
[2017-08-24] VITALS: BP 140/79
[2017-08-24] MEDS: PIPERACILLIN /TAZOBACTAM 2.25 G in IV D5W 50 ML IV SCH ×5 (01:21→23:51)
[2017-08-24 04:00] VITALS: BP 132/83
[2017-08-24] MEDS: METRONIDAZOLE 500 MG TABLET PO SCH ×3 (06:00→22:11)
[2017-08-24] MEDS: DILTIAZEM HCL 30 MG TABLET PO SCH ×3 (06:00→22:11)
--- NOTE | 2017-08-24 06:08 | NUR ---
rn note patient remained npo since 0000 midnight
--- NOTE | 2017-08-24 07:24 | NUR ---
RN CLOSING NOTE NO ACUTE CHANGES DURING MY SHIFT, PATIENT WAS NPO SINCE MIDNIGHT, NO S/S OF DISTRESS NOTED, PATIENT IS STABLE, BED IN THE LOW POSITION, SIDE RAILS UP, PICTURES WERE TAKEN, WILL ENDORSE TO THE NEXT SHIFT
[2017-08-24] MEDS: LEVOTHYROXINE SODIUM 50 MCG TABLET PO SCH (07:30)
[2017-08-24] MEDS: ACETYLCYSTEINE 10% SOLN 400 MG/4 ML VIAL NEB SCH ×3 (07:42→23:35)
--- NOTE | 2017-08-24 07:50 | NUR ---
HEAD OF TRANSPORT LOGISTICS NOTES RECEIVED PT ON BED CONFUSED. A/OX1. ON NASAL CANNULA SATURATING WELL. ON TELE MONITOR, A FIB CONTROLLED WITH PVC. ON NPO STILL. ON HEPARIN DRIP, IV ACCESS LUIS MIDLINE NO SIGN OF REDNESS OR INFECTION. HEAD OF BED ELEVATED. SIDE RAILS UP. WILL CONTINUE TO MONITOR PT CLOSELY.
[2017-08-24 08:00] VITALS: BP 137/89
[2017-08-24] MEDS: BOOST PLUS FOOD-CHOCLATE 237 ML BOX PO SCH ×2 (08:00→17:00)
[2017-08-24 08:11] LABS: CALCIUM, SERUM 8.3 mg/dL (8.5-10.1); CARBON DIOXIDE 22 mmol/L (21-32); CHLORIDE 114 mmol/L (98-107); CREATININE 2.3 mg/dL (0.6-1.3); GLUCOSE 90 mg/dL (74-106); POTASSIUM 3.9 mmol/L (3.5-5.1); SODIUM SERUM 143 mmol/L (136-145); UREA NITROGEN, BLOOD 40 mg/dL (7-18)
[2017-08-24] MEDS: HYDROGEL DRESSING 90 GM TUBE TP SCH (08:51)
[2017-08-24] MEDS: FAMOTIDINE (20 MG) 20 MG TABLET PO SCH (08:51)
[2017-08-24] MEDS: ASPIRIN 81 MG TAB.CHEW PO SCH (08:51)
[2017-08-24] MEDS: MULTIVITAMINS,THERAGRAN 1 UDTAB TABLET PO SCH (08:51)
--- NOTE | 2017-08-24 09:29 | NUR ---
PER RN KIM, PATIENT ON HOLD FOR U/S GUIDED THORACENTESIS UNTIL HE CONFIRMS WITH CHARGE NURSE @ 9:25 AM
--- NOTE | 2017-08-24 09:38 | NUR ---
TOPOGRAPHICAL DRAFTER NOTES CALLED THE PHARMACY FOR VANCOMYCIN MEDICATION. PRESTON FROM PHARMACY INSTRUCTED THE NURSE TO WAIT FOR THE NEW LABEL.
[2017-08-24] MEDS: VANCOMYCIN 0.75 GM in IV D5W 250 ML IV SCH (10:43)
[2017-08-24 12:00] VITALS: BP 143/91
[2017-08-24 16:00] VITALS: BP 139/96
--- NOTE | 2017-08-24 16:54 | NUR ---
AT 1645 ARTIE ALVAREZ NEEDS TO CONFIRM WITH CHARGE NURSE IF US GUIDED THORACENTESIS IS TO BE DONE.
--- NOTE | 2017-08-24 19:05 | NUR ---
COMPRESSOR STATION CHIEF ENGINEER OPENING NOTES RECEIVED REPORT FROM KIM ALVA. PATIENT A/A/O X1 W/ CONFUSION. BREATHING EVEN & UNLABORED, ON O2 3L VIA NC. NO S/S OF SOB OR DIFFICULTY BREATHING. ON TELE W/ CONTROLLED A-FIB & PVCS IN THE 80S. RIGHT UPPER ARM MIDLINE INTACT & PATENT W/ DRESSING CDI ON TKO. NO S/S OF PAIN OR DISCOMFORT @ THIS TIME. RESTING COMFORTABLY IN BED. SAFETY MEASURES IN PLACE W/ SIDE RAILS UP, BED LOCKED & IN LOWEST POSITION, BED ALARM ON & CALL LIGHT WITHIN REACH. WILL CONTINUE TO MONITOR.
[2017-08-24 20:00] VITALS: BP 125/90
--- NOTE | 2017-08-24 20:10 | NUR ---
COLOR DEPOSITING MACHINE TENDER NOTES NO ACUTE CHANGES NOTED THE SHIFT. DUE MEDS GIVEN. PROVIDED COMFORT. SIDE RAILS UP. ENDORSED TO THE PM NURSE FOR CONTINUITY OF CARE.
[2017-08-24] MEDS: ATORVASTATIN 10 MG TABLET PO SCH (22:11)
[2017-08-24] MEDS: DONEPEZIL 5 MG TABLET PO SCH (22:11)
[2017-08-25] VITALS: BP 129/91
[2017-08-25 04:00] VITALS: BP 134/87
[2017-08-25] MEDS: METRONIDAZOLE 500 MG TABLET PO SCH ×4 (04:53→21:31)
[2017-08-25] MEDS: DILTIAZEM HCL 30 MG TABLET PO SCH ×4 (04:54→21:30)
[2017-08-25] MEDS: PIPERACILLIN /TAZOBACTAM 2.25 G in IV D5W 50 ML IV SCH ×3 (05:01→17:29)
[2017-08-25] MEDS: LEVOTHYROXINE SODIUM 50 MCG TABLET PO SCH (07:30)
[2017-08-25 07:52] LABS: CALCIUM, SERUM 7.9 mg/dL (8.5-10.1); CARBON DIOXIDE 19 mmol/L (21-32); CHLORIDE 114 mmol/L (98-107); CREATININE 2.1 mg/dL (0.6-1.3); GLUCOSE 85 mg/dL (74-106); POTASSIUM 3.9 mmol/L (3.5-5.1); SODIUM SERUM 150 mmol/L (136-145); UREA NITROGEN, BLOOD 38 mg/dL (7-18)
[2017-08-25 08:00] VITALS: BP 125/78
[2017-08-25] MEDS: BOOST PLUS FOOD-CHOCLATE 237 ML BOX PO SCH ×2 (08:00→17:29)
[2017-08-25] MEDS: ACETYLCYSTEINE 10% SOLN 400 MG/4 ML VIAL NEB SCH ×3 (08:07→23:41)
[2017-08-25] MEDS: FAMOTIDINE (20 MG) 20 MG TABLET PO SCH (08:47)
[2017-08-25] MEDS: ASPIRIN 81 MG TAB.CHEW PO SCH (08:47)
[2017-08-25] MEDS: MULTIVITAMINS,THERAGRAN 1 UDTAB TABLET PO SCH (08:47)
[2017-08-25] MEDS: HYDROGEL DRESSING 90 GM TUBE TP SCH (08:48)
--- NOTE | 2017-08-25 09:15 | NUR ---
RN RAMONA HERNANDEZ CALLED REGARDING THORACENTESIS. ASK FOR ORDER FOR PLT ABD INR. ENTERED ORDER STAT. LEFT BOTTLES FOR PROCEDURE @ BEDSIDE. CALLED EXT [phone] AND LEFT MESSAGE TO CONFIRM THORACENTESIS.
[2017-08-25 12:00] VITALS: BP 113/82
--- NOTE | 2017-08-25 12:00 | NUR ---
RN NOTE CALLED DAVID REGARDING THORACENTESIS. PHONE RANG UNABLE TO LEAVE MESSAGE. IS ASKING REGARDING PROCEDURE.
[2017-08-25 15:27] LABS: EOSINOPHILS # (AUTO) 0.3 /CMM (0.0-0.7); EOSINOPHILS % (AUTO) 2.7 % (0.0-6.0); HEMATOCRIT 35 % (39-51); LYMPHOCYTES # (AUTO) 0.4 /CMM (0.8-4.8); LYMPHOCYTES % (AUTO) 3.9 % (20.0-44.0); MEAN CORPUSCULAR HEMOGLOBIN 26 PG (26.0-33.0); MEAN CORPUSCULAR HGB CONC 32 g/dl (31.0-36.0); MEAN CORPUSCULAR VOLUME 81 fL (80-96); MONOCYTES # (AUTO) 0.6 /CMM (0.1-1.30); MONOCYTES % (AUTO) 5.5 % (2.0-12.0); NEUTROPHILS # (AUTO) 9.7 /CMM (1.8-8.9); NEUTROPHILS % (AUTO) 87.9 % (43.0-81.0); PLATELET COUNT (AUTO) 146 /CMM (150-450); RDW COEFFICIENT OF VARIATION 20.7 (11.5-15.0)
--- NOTE | 2017-08-25 15:30 | NUR ---
JOSE RAMON DAVID WILL NOT DO THORACENTESIS PER THEIR PROTOCOL AFTER THREE NO MORE THORACENTESIS,RELAYED PROTIME AVAILABLE NOW STILL REFUSED,DR. HOOKER NOTIFIEED REGARDING DELAY IN PROCEDURE. MADE AWARE.
[2017-08-25 15:46] LABS: INR 1.21 (0.87-1.13)
--- NOTE | 2017-08-25 15:49 | NUR ---
INR STILL PENDING IN ORDER TO DO THORACENTESIS
[2017-08-25 16:00] VITALS: BP 111/59
--- NOTE | 2017-08-25 16:06 | NUR ---
AT 1030 RN NEHEMIAH WILL CONFIRM WITH CHARGE NURSE IF THORACENTESIS TO BE DONE ,SINCE PATIENT WILL BE HAVING PLEURAX PLACEMENT,
[2017-08-25 16:29] LABS: BAND % (MANUAL) 8 % (0.0-5.0); EOSINOPHILS % (MANUAL) 2 % (0-4); LYMPHOCYTES % (MANUAL) 6 % (16-48); MONOCYTES % (MANUAL) 8 % (0-11.0); NEUTROPHILS % (MANUAL) 76 (42-76)
[2017-08-25 20:00] VITALS: BP 120/72
[2017-08-25] MEDS: ATORVASTATIN 10 MG TABLET PO SCH (21:31)
[2017-08-25] MEDS: DONEPEZIL 5 MG TABLET PO SCH (21:31)
[2017-08-26] VITALS: BP 110/76
--- NOTE | 2017-08-26 | NUR ---
RN NOTES PATIENT NOW NPO FOR SCHEDULED THORACENTESIS AND L SIDED PLEUR X PLACEMENT. PATIENT VERBALIZES UNDERSTANDING, WILL CONTINUE TO CLOSELY MONITOR
[2017-08-26] MEDS: PIPERACILLIN /TAZOBACTAM 2.25 G in IV D5W 50 ML IV SCH ×5 (00:27→23:33)
[2017-08-26 04:00] VITALS: BP 123/85
[2017-08-26] MEDS: METRONIDAZOLE 500 MG TABLET PO SCH ×3 (05:00→21:23)
[2017-08-26] MEDS: DILTIAZEM HCL 30 MG TABLET PO SCH ×3 (05:00→21:23)
--- NOTE | 2017-08-26 07:00 | NUR ---
RN CLOSING NOTES PATIENT RESTING IN BED, APPEARS COMFORTABLE, TOLERATING O2 VIA NC, NO RESPIRATORY DISTRESS NOTED. PATIENT KEPT NPO FOR SCHEDULED PROCEDURE. WILL ENDORSE THE PATIENT TO THE AM SHIFT NURSE FOR AMY
[2017-08-26 07:41] LABS: INR 1.22 (0.87-1.13)
[2017-08-26 08:00] VITALS: BP 132/78
[2017-08-26] MEDS: VANCOMYCIN 0.75 GM in IV D5W 250 ML IV SCH ×2 (08:00→19:37)
[2017-08-26] MEDS: ACETYLCYSTEINE 10% SOLN 400 MG/4 ML VIAL NEB SCH ×3 (08:07→23:40)
[2017-08-26 08:14] LABS: CALCIUM, SERUM 8.1 mg/dL (8.5-10.1); CARBON DIOXIDE 25 mmol/L (21-32); CHLORIDE 113 mmol/L (98-107); CREATININE 2.1 mg/dL (0.6-1.3); GLUCOSE 103 mg/dL (74-106); SODIUM SERUM 149 mmol/L (136-145); UREA NITROGEN, BLOOD 37 mg/dL (7-18); VANCOMYCIN,TROUGH 21 ug/ml (12-20)
[2017-08-26 08:16] LABS: EOSINOPHILS # (AUTO) 0.3 /CMM (0.0-0.7); EOSINOPHILS % (AUTO) 2.1 % (0.0-6.0); HEMATOCRIT 34 % (39-51); HEMOGLOBIN 11.1 g/dL (13.5-17.5); LYMPHOCYTES # (AUTO) 0.6 /CMM (0.8-4.8); LYMPHOCYTES % (AUTO) 4.6 % (20.0-44.0); MEAN CORPUSCULAR HEMOGLOBIN 26 PG (26.0-33.0); MEAN CORPUSCULAR HGB CONC 32 g/dl (31.0-36.0); MEAN CORPUSCULAR VOLUME 80 fL (80-96); MONOCYTES # (AUTO) 0.5 /CMM (0.1-1.30); NEUTROPHILS # (AUTO) 10.9 /CMM (1.8-8.9); NEUTROPHILS % (AUTO) 89.3 % (43.0-81.0); PLATELET COUNT (AUTO) 173 /CMM (150-450); RDW COEFFICIENT OF VARIATION 20.3 (11.5-15.0); RED BLOOD CELL COUNT(AUTO) 4.29 MIL/uL (4.5-6.0); WHITE BLOOD COUNT (AUTO) 12.2 K/uL (4.3-11.0)
--- NOTE | 2017-08-26 08:50 | NUR ---
VANCO DOSE HELD DUE TO HIGH VANCO TROUGH OF 21-PHARMACIST ZACH NOTIFIED.
--- NOTE | 2017-08-26 10:00 | NUR ---
THORACENTESIS DONE,TOLERATED WELL VS STARTED,STABLE.FLUID SENT WITH CYTOLOGY SLIP PER TESTS ORDERED. PHOTO SENT TO DR. KERR.
[2017-08-26] MEDS: LEVOTHYROXINE SODIUM 50 MCG TABLET PO SCH (11:21)
[2017-08-26] MEDS: POTASSIUM CHLORIDE 20 MEQ TAB.PRT.SR PO SCH (11:21)
[2017-08-26] MEDS: ASPIRIN 81 MG TAB.CHEW PO SCH (11:21)
[2017-08-26] MEDS: FAMOTIDINE (20 MG) 20 MG TABLET PO SCH (11:21)
[2017-08-26] MEDS: MULTIVITAMINS,THERAGRAN 1 UDTAB TABLET PO SCH (11:21)
[2017-08-26] MEDS: HYDROGEL DRESSING 90 GM TUBE TP SCH (11:22)
[2017-08-26] MEDS: BOOST PLUS FOOD-CHOCLATE 237 ML BOX PO SCH ×2 (11:38→18:43)
[2017-08-26 12:00] VITALS: BP 151/76
[2017-08-26] MEDS ORDERED: POTASSIUM CHLORIDE 20 MEQ TAB.PRT.SR PO SCH (14:30)
[2017-08-26 18:00] VITALS: BP 149/77
--- NOTE | 2017-08-26 18:00 | NUR ---
VS REMAIN STABLE.FAMILY IN VISITING ALL DAY POTASSIUM REPLACEMENT X 2.
[2017-08-26 20:00] VITALS: BP 120/85
[2017-08-26] MEDS: ATORVASTATIN 10 MG TABLET PO SCH (21:22)
[2017-08-26] MEDS: DONEPEZIL 5 MG TABLET PO SCH (21:23)
[2017-08-27] VITALS: BP 111/91
[2017-08-27 04:00] VITALS: BP 133/96
[2017-08-27] MEDS: METRONIDAZOLE 500 MG TABLET PO SCH ×3 (05:12→21:23)
[2017-08-27] MEDS: PIPERACILLIN /TAZOBACTAM 2.25 G in IV D5W 50 ML IV SCH ×4 (05:13→23:30)
[2017-08-27] MEDS: DILTIAZEM HCL 30 MG TABLET PO SCH ×3 (05:13→21:24)
[2017-08-27 08:00] VITALS: BP 103/79
[2017-08-27] MEDS: BOOST PLUS FOOD-CHOCLATE 237 ML BOX PO SCH ×2 (08:00→17:00)
[2017-08-27 08:05] LABS: CALCIUM, SERUM 8.1 mg/dL (8.5-10.1); CARBON DIOXIDE 23 mmol/L (21-32); CHLORIDE 110 mmol/L (98-107); CREATININE 2.2 mg/dL (0.6-1.3); GLUCOSE 97 mg/dL (74-106); POTASSIUM 3.7 mmol/L (3.5-5.1); SODIUM SERUM 144 mmol/L (136-145); UREA NITROGEN, BLOOD 38 mg/dL (7-18)
[2017-08-27] MEDS: ALBUTEROL FS 2.5 MG/0.5 ML VIAL.NEB NEB PRN ×2 (08:36→15:35)
[2017-08-27] MEDS: ACETYLCYSTEINE 10% SOLN 400 MG/4 ML VIAL NEB SCH ×3 (08:36→22:53)
[2017-08-27] MEDS: MULTIVITAMINS,THERAGRAN 1 UDTAB TABLET PO SCH (08:39)
[2017-08-27] MEDS: POTASSIUM CHLORIDE 20 MEQ TAB.PRT.SR PO SCH (08:39)
[2017-08-27] MEDS: LEVOTHYROXINE SODIUM 50 MCG TABLET PO SCH (08:39)
[2017-08-27] MEDS: ASPIRIN 81 MG TAB.CHEW PO SCH (08:39)
[2017-08-27] MEDS: FAMOTIDINE (20 MG) 20 MG TABLET PO SCH (08:39)
[2017-08-27] MEDS: HYDROGEL DRESSING 90 GM TUBE TP SCH (08:40)
[2017-08-27 12:00] VITALS: BP 115/62
[2017-08-27 16:00] VITALS: BP 107/65
--- NOTE | 2017-08-27 16:00 | NUR ---
WOUND DRESSINGS CHANGED AND PICTURES TAKEN FOR DISCHARGE
--- NOTE | 2017-08-27 18:01 | NUR ---
CALLED DR HOOKER TO INFORM MD THAT PT BED WAS GIVEN AWAY AT [facility] AND THE PT WILL NOT BE LEAVING [facility].
--- NOTE | 2017-08-27 18:56 | NUR ---
NO SIGNIFICANT CHANGES IN PATIENT CONDITION THROUGHOUT THE SHIFT. NO SOB OR DISTRESS NOTED AT THIS TIME. PATIENT DENIES PAIN. BED IN A LOW POSITION, CALL LIGHT WITHIN PATIENT REACH. WILL ENDORSE FOR AMY.
--- NOTE | 2017-08-27 19:30 | NUR ---
RN/MS NOTES: RECEIVED PT. IN BED A/O X 1-2 W/ PERIODS OF CONFUSION. W/ O2 @ 4LPM VIA N/C SAT. 93%. NO S/S OF SOB OR DIFFICULTY BREATHING. RIGHT UPPER ARM MIDLINE INTACT & PATENT W/ NO S/S OF INFECTION/INFILTRATION NOTED. DRESSING CDI ON TKO. NO S/S OF PAIN DISCOMFORT @ THIS TIME. RESTING COMFORTABLY IN BED. SAFETY MEASURES IN PLACE W/ SIDE RAILS UP, BED LOCKED & IN LOWEST POSITION, BED ALARM ON & CALL LIGHT WITHIN REACH. WILL CONTINUE TO MONITOR.
[2017-08-27] MEDS: DONEPEZIL 5 MG TABLET PO SCH (21:24)
[2017-08-27] MEDS: ATORVASTATIN 10 MG TABLET PO SCH (21:24)
--- NOTE | 2017-08-28 01:01 | NUR ---
RN/MS NOTES: REPORT GIVEN TO NURSE MODI TO AMY.
--- NOTE | 2017-08-28 01:05 | NUR ---
RN NOTES RECEIVED PT IN BED, ASLEEP AT THIS TIME, AROUSABLE. APPEARS COMFORTABLE. NO DISTRESS, NO SOB NOTED. PT ON 02 @ 3LPM VIA NC KYLE WELL. LUIS MIDLINE INTACT AND PATENT, NO S/S OF INFILTRATION NOTED. FC IS INTACT AND PATENT DRAINING WITH YELLOW URINE, NO HEMATURIA NOTED. ALL NEEDS ATTENDED AND MET, SAFETY PRECAUTIONS OBSERVED. WILL CONTINUE TO MONITOR.
--- NOTE | 2017-08-28 03:50 | NUR ---
REPORT GIVEN TO ARTIE LR
--- NOTE | 2017-08-28 04:05 | NUR ---
TRANSFERRED PT TO MS/TELE FLOOR, ROOM 310-1 VIA HOSPITAL PROTOCOL. PT IN STABLE CONDITION, NO DISTRESS, NO PAIN OR DISCOMFORT. ENDORSED TO ARTIE LR ACCORDINGLY. BELONGINGS SENT WITH THE PT.
[2017-08-28 04:10] VITALS: BP 108/61
--- NOTE | 2017-08-28 04:15 | NUR ---
MS RN NOTES: RECEIVED PT A TRANSFER FROM LY ALVA. PT ON 4LPM VIA NC AND IS ON 91% 02 SAT. PT A/OX1 CONFUSED. PT HAS CABRERA CATH AND IS ATTACHED TO DRAINAGE BAG WITH YELLOW URINE DRAINING. PT HAS LUIS MIDLINE AND IS PATENT AND INTACT. CALL LIGHT WITHIN PT'S REACH. BED KEPT IN LOW, LOCKED POSITION, AND SIDE RAILS X 2UP. BED ALARM ACTIVATED. PT IN SEMI-CHIU'S POSITION. WILL CONTINUE TO MONITOR PT.
[2017-08-28] MEDS: DILTIAZEM HCL 30 MG TABLET PO SCH ×3 (04:56→21:49)
[2017-08-28] MEDS: PIPERACILLIN /TAZOBACTAM 2.25 G in IV D5W 50 ML IV SCH ×4 (05:01→23:29)
[2017-08-28] MEDS: METRONIDAZOLE 500 MG TABLET PO SCH ×3 (05:02→21:47)
[2017-08-28] MEDS: LEVOTHYROXINE SODIUM 50 MCG TABLET PO SCH (07:54)
[2017-08-28 08:00] VITALS: BP 108/68
[2017-08-28] MEDS: BOOST PLUS FOOD-CHOCLATE 237 ML BOX PO SCH ×2 (08:11→18:02)
[2017-08-28] MEDS: ASPIRIN 81 MG TAB.CHEW PO SCH (08:12)
[2017-08-28] MEDS: FAMOTIDINE (20 MG) 20 MG TABLET PO SCH (08:12)
[2017-08-28] MEDS: POTASSIUM CHLORIDE 20 MEQ TAB.PRT.SR PO SCH (08:12)
[2017-08-28] MEDS: ACETYLCYSTEINE 10% SOLN 400 MG/4 ML VIAL NEB SCH ×2 (08:13→16:00)
[2017-08-28] MEDS: MULTIVITAMINS,THERAGRAN 1 UDTAB TABLET PO SCH (08:16)
[2017-08-28] MEDS: Z GUARD REMEDY 2 OZ OINT TP PRN (08:17)
[2017-08-28] MEDS: HYDROGEL DRESSING 90 GM TUBE TP SCH (08:17)
[2017-08-28] MEDS: IPRATROPIUM NEB FS 0.5 MG/2.5 ML AMPUL.NEB NEB PRN ×2 (08:21→16:00)
[2017-08-28] MEDS: ALBUTEROL FS 2.5 MG/0.5 ML VIAL.NEB NEB PRN ×2 (08:21→16:00)
[2017-08-28 09:35] LABS: CALCIUM, SERUM 8.2 mg/dL (8.5-10.1); CARBON DIOXIDE 24 mmol/L (21-32); CHLORIDE 112 mmol/L (98-107); CREATININE 2.4 mg/dL (0.6-1.3); GLUCOSE 104 mg/dL (74-106); POTASSIUM 3.6 mmol/L (3.5-5.1); SODIUM SERUM 149 mmol/L (136-145); UREA NITROGEN, BLOOD 39 mg/dL (7-18)
[2017-08-28 16:00] VITALS: BP 110/69
[2017-08-28] MEDS: VANCOMYCIN 0.75 GM in IV D5W 250 ML IV SCH (18:00)
--- NOTE | 2017-08-28 18:30 | NUR ---
M/S RN - Notes Patient awake, A/O x 1, appears to be lethargic, poor appetite, remain afebrile, denies pain, on 4lpm via NC. [place] catheter in place for sacral wound. Patient repositioned q2h and on specialty mattress for skin management. LUIS midline patent, intact, with no signs of infiltration. Called lab for vanco trough, results pending, unable to give 1800 dose yet. Family at bedside updated on plan of care. Per CM, still waiting for bed availability at [facility]. Will continue with current medical management and will endorse to the night RN accordingly.
--- NOTE | 2017-08-28 19:15 | NUR ---
RN OPENING NOTES RECEIVED REPORT FROM AM NURSE, PATIENT IN BED, ASLEEP BUT EASILY AROUSABLE, ALERT TO SELF,NOTED WITH NO SOB, BREATHING EVEN AND UNLABORED. PATIENT IN NO ACUTE DISTRESS. BED PLACED IN LOW POSITION AND LOCKED IN PLACE. WILL CONTINUE TO MONITOR PT.
--- NOTE | 2017-08-28 19:33 | NUR ---
RN NOTE VANCOMYCIN DOSE HELD FOR TODAY D/T VANCO TROUGH LEVEL HIGH = 23.
[2017-08-28 20:00] VITALS: BP 147/95
[2017-08-28] MEDS: ATORVASTATIN 10 MG TABLET PO SCH (21:47)
[2017-08-28] MEDS: DONEPEZIL 5 MG TABLET PO SCH (21:53)
[2017-08-29] MEDS: ACETYLCYSTEINE 10% SOLN 400 MG/4 ML VIAL NEB SCH ×4 (00:04→22:44)
[2017-08-29] MEDS: ALBUTEROL FS 2.5 MG/0.5 ML VIAL.NEB NEB PRN (00:05)
[2017-08-29] MEDS: IPRATROPIUM NEB FS 0.5 MG/2.5 ML AMPUL.NEB NEB PRN (00:05)
[2017-08-29] MEDS: METRONIDAZOLE 500 MG TABLET PO SCH ×4 (04:54→21:27)
[2017-08-29] MEDS: PIPERACILLIN /TAZOBACTAM 2.25 G in IV D5W 50 ML IV SCH ×3 (05:45→18:45)
[2017-08-29] MEDS: DILTIAZEM HCL 30 MG TABLET PO SCH ×4 (05:47→21:27)
--- NOTE | 2017-08-29 06:54 | NUR ---
RN CLOSING NOTE PATIENT IN BED, ASLEEP BUT EASILY AROUSABLE, CONTINUES TO RECEIVE O2 VIA NC @4LPM, O2 SAT 96%, NOTED WITH NO SOB, BREATHING EVEN AND UNLABORED, IN NO ACUTE DISTRESS. CABRERA CATHETER DRAINING WELL WITH YELLOW URINE. ALL PATIENT'S NEEDS ATTENDED TO. CALL LIGHT PLACED WITHIN EASY REACH. BED PLACED IN LOW POSITION AND LOCKED IN PLACE. WILL ENDORSE TO AM NURSE FOR CONTINUITY OF CARE.
[2017-08-29] MEDS: LEVOTHYROXINE SODIUM 50 MCG TABLET PO SCH ×2 (07:30→10:40)
[2017-08-29 08:00] VITALS: BP 106/64
[2017-08-29] MEDS: BOOST PLUS FOOD-CHOCLATE 237 ML BOX PO SCH ×3 (08:00→17:00)
[2017-08-29] MEDS: ASPIRIN 81 MG TAB.CHEW PO SCH ×2 (09:00→10:40)
[2017-08-29] MEDS: MULTIVITAMINS,THERAGRAN 1 UDTAB TABLET PO SCH ×2 (09:00→10:40)
[2017-08-29] MEDS: FAMOTIDINE (20 MG) 20 MG TABLET PO SCH ×2 (09:00→10:40)
[2017-08-29] MEDS: POTASSIUM CHLORIDE 20 MEQ TAB.PRT.SR PO SCH ×2 (09:00→10:40)
[2017-08-29] MEDS: HYDROGEL DRESSING 90 GM TUBE TP SCH (10:41)
--- NOTE | 2017-08-29 12:00 | NUR ---
family in most of day.lab drawn late ,low potassium level called to dr. root.orders given.
[2017-08-29 13:42] LABS: CALCIUM, SERUM 8.2 mg/dL (8.5-10.1); CARBON DIOXIDE 23 mmol/L (21-32); CHLORIDE 111 mmol/L (98-107); CREATININE 2.4 mg/dL (0.6-1.3); GLUCOSE 95 mg/dL (74-106); SODIUM SERUM 146 mmol/L (136-145); UREA NITROGEN, BLOOD 41 mg/dL (7-18)
[2017-08-29 13:49] LABS: POTASSIUM 2.8 mmol/L (3.5-5.1)
[2017-08-29] MEDS ORDERED: POTASSIUM CHLORIDE 10 MEQ/50 ML PREMIXED IVPB FOR PERIPHERAL LINE IV SCH (14:30)
[2017-08-29] MEDS: Potassium Chloride 10 MEQ in IV D5W 50 ML IV SCH ×6 (14:30→23:26)
[2017-08-29 16:00] VITALS: BP 111/60
--- NOTE | 2017-08-29 16:20 | NUR ---
multiple calls to pharm. for kcl bags-rn attempting to give replacement iv.
--- NOTE | 2017-08-29 18:30 | NUR ---
one half of potassium replaced and rest endorsed to tarik rn.multiple dressings changed.
--- NOTE | 2017-08-29 19:30 | NUR ---
RN NOTES RECEIVED PT. AWAKE ON BED, A/OX2, F/C DRAINING TEA COLORED URINE, DENIES PAIN, NO SOB, SIDERAILSUPX2 CONTINUE TO MONITOR
[2017-08-29 20:00] VITALS: BP 158/87
[2017-08-29] MEDS: ATORVASTATIN 10 MG TABLET PO SCH (21:27)
[2017-08-29] MEDS: DONEPEZIL 5 MG TABLET PO SCH (22:00)
[2017-08-30] MEDS: PIPERACILLIN /TAZOBACTAM 2.25 G in IV D5W 50 ML IV SCH ×4 (00:24→19:51)
[2017-08-30] MEDS: DILTIAZEM HCL 30 MG TABLET PO SCH ×3 (05:00→21:45)
[2017-08-30] MEDS: METRONIDAZOLE 500 MG TABLET PO SCH ×2 (05:00→12:22)
--- NOTE | 2017-08-30 05:00 | NUR ---
RN NOTES PT REFUSED HIS DUE MEDICATION
--- NOTE | 2017-08-30 06:25 | NUR ---
RN NOTES AWAKE MORNING CARE RENDERED, DENIES PAIN, NO SOB, CALL LIGHT WITHIN REACH, SIDERAILS UPX2 PT. NEEDS ATTENDED
--- NOTE | 2017-08-30 07:00 | NUR ---
REPORT RECEIVED AT THE BEDSIDE. PATIENT IS SLEEPING. NO SOB OR DISTRESS NOTED AT THIS TIME. PATIENT DOES NOT APPEAR TO BE IN PAIN, NO FACIAL GRIMACE NOTED. BED IN A LOW POSITION, CALL LIGHT WITHIN PATIENT REACH, SITTER IS AT THE BEDSIDE. WILL CONTINUE TO MONITOR.
[2017-08-30 08:00] VITALS: BP 111/70
[2017-08-30] MEDS: BOOST PLUS FOOD-CHOCLATE 237 ML BOX PO SCH ×2 (08:00→16:22)
[2017-08-30 08:01] LABS: CALCIUM, SERUM 8.4 mg/dL (8.5-10.1); CARBON DIOXIDE 19 mmol/L (21-32); CHLORIDE 111 mmol/L (98-107); CREATININE 2.5 mg/dL (0.6-1.3); GLUCOSE 111 mg/dL (74-106); SODIUM SERUM 145 mmol/L (136-145); UREA NITROGEN, BLOOD 41 mg/dL (7-18)
[2017-08-30] MEDS: ACETYLCYSTEINE 10% SOLN 400 MG/4 ML VIAL NEB SCH ×2 (08:03→16:08)
[2017-08-30] MEDS: LEVOTHYROXINE SODIUM 50 MCG TABLET PO SCH (08:05)
[2017-08-30] MEDS: FAMOTIDINE (20 MG) 20 MG TABLET PO SCH (08:24)
[2017-08-30] MEDS: POTASSIUM CHLORIDE 20 MEQ TAB.PRT.SR PO SCH (08:24)
[2017-08-30] MEDS: MULTIVITAMINS,THERAGRAN 1 UDTAB TABLET PO SCH (08:24)
[2017-08-30] MEDS: ASPIRIN 81 MG TAB.CHEW PO SCH (08:24)
[2017-08-30] MEDS: HYDROGEL DRESSING 90 GM TUBE TP SCH (08:25)
[2017-08-30 08:54] LABS: BASOPHILS % (AUTO) 0.2 % (0.0-2.0); EOSINOPHILS # (AUTO) 0.1 /CMM (0.0-0.7); EOSINOPHILS % (AUTO) 0.6 % (0.0-6.0); HEMATOCRIT 36 % (39-51); HEMOGLOBIN 11.4 g/dL (13.5-17.5); LYMPHOCYTES # (AUTO) 0.8 /CMM (0.8-4.8); LYMPHOCYTES % (AUTO) 3.7 % (20.0-44.0); MEAN CORPUSCULAR HEMOGLOBIN 26 PG (26.0-33.0); MEAN CORPUSCULAR HGB CONC 32 g/dl (31.0-36.0); MEAN CORPUSCULAR VOLUME 82 fL (80-96); MONOCYTES # (AUTO) 1.3 /CMM (0.1-1.30); MONOCYTES % (AUTO) 6.4 % (2.0-12.0); NEUTROPHILS # (AUTO) 18.4 /CMM (1.8-8.9); NEUTROPHILS % (AUTO) 89.1 % (43.0-81.0); PLATELET COUNT (AUTO) 301 /CMM (150-450); RDW COEFFICIENT OF VARIATION 22.6 (11.5-15.0); RED BLOOD CELL COUNT(AUTO) 4.36 MIL/uL (4.5-6.0); WHITE BLOOD COUNT (AUTO) 20.6 K/uL (4.3-11.0)
--- NOTE | 2017-08-30 10:00 | NUR ---
MS RN OPENING NOTES. RECEIVED PT FROM ARTIE TELLO, ENDORSED AT BEDSIDE. PT A&0X2 WITH INTERMITTENT PERIODS OF CONFUSION. PT WITH O2 VIA NC AT 4LPM AND SAO2 96%, PT DENIES SOB AND IS WITHOUT S/S OF RESP DISTRESS. PT REPORTS NO PAIN. PT WITH MIDLINE AT R UA INTACT AND OPERATIONAL, CABRERA CATH INSITU DRAINING YELLOW URINE. PT FAMILY AT BEDSIDE. BED IN LOWEST LOCKED POSITION WITH HANDRAILSX3 AND CALL ENCARNACION WITHIN REACH. WILL CONTINUE TO MONITOR.
[2017-08-30 16:00] VITALS: BP 111/50
--- NOTE | 2017-08-30 19:56 | NUR ---
MS RN OPENING NOTES. PT A&0X2. PT REMAINS WITH O2 VIA NC AT 4LPM AND SAO2 96% AND IS WITHOUT S/S OF RESP DISTRESS. PT REPORTS NO PAIN. PT WITH MIDLINE AT R UA INTACT AND OPERATIONAL, CABRERA CATH INSITU DRAINING YELLOW URINE. WOUND CARE COMPLETED PRESCRIBED. PT REPORTING STIFFNESS AND PAIN DURING REPOSITIONING AND DIAPER CHANGES, BUT CONTINUED TO REFUSE ANALGESIA. NIGHT NURSED ENDORSED TO HANG LATE IVAB. BED IN LOWEST LOCKED POSITION WITH HANDRAILSX3 AND CALL ENCARNACION WITHIN REACH. PT WITHOUT CONCERN OR COMPLAINT, ENDORSED TO NIGHT NURSE FOR AMY.
--- NOTE | 2017-08-30 19:57 | NUR ---
RN MS INITIAL NOTES RECEIVED PT LAYING IN BED WITH HOB ELEVATED. AWAKE, ALERT AND RESPONSIVE. RESPIRATIONS ARE EVEN AND UNLABORED, NOT IN ANY ACUTE DISTRESS NOTED. DENIES ANY PAIN AT THIS TIME. LUIS MIDLINE INTACT, PATENT. DRESSING KEPT CLEAN AND DRY. MULTIPLE DISCOLORATIONS TO BUE/BLE, WOUND NOTED TO RIGHT HIP AND BILATERAL HEELS, DRESSING TO BUE KEPT CLEAN AND DRY. BILATERAL HEELS ARE OFFLOADED, WILL REPOSITION Q2H TO PREVENT FURTHER SKIN INJURY. WILL MONITOR THROUGHOUT SHIFT FOR CONTINUITY OF CARE. REMINDED PT TO USE CALL LIGHT WHEN ASSISTANCE IS NEEDED, CALL LIGHT IS LEFT WITHIN REACH.
[2017-08-30 20:00] VITALS: BP 117/69
[2017-08-30] MEDS: ATORVASTATIN 10 MG TABLET PO SCH (21:19)
[2017-08-30] MEDS: DONEPEZIL 5 MG TABLET PO SCH (21:19)
[2017-08-30] MEDS ORDERED: LEVOFLOXACIN 500 MG /D5W 100ML 0 ML IV ONE (22:21)
[2017-08-30] MEDS ORDERED: METRONIDAZOLE 500MG/ NS 100ML 100 ML IV ONE (22:22)
[2017-08-30] MEDS ORDERED: MEROPENEM 500 MG VIAL IV ONE (22:24)
[2017-08-30] MEDS: MEROPENEM 500 MG in IV NS 0.9% 50 ML IV SCH (22:54)
[2017-08-30] MEDS: METRONIDAZOLE 500MG/ NS 100ML 500 MG in PREMIX 1 EA IV SCH (23:57)
[2017-08-31] MEDS ORDERED: METRONIDAZOLE 250 MG TABLET PO SCH
--- NOTE | 2017-08-31 | NUR ---
ARTIE NOTES FLAGYL 500MG PO WAS NOT GIVEN- CLAUDIO KENDALL-CHEYANNE CHANGE IT TO IV Addendum: 08/31/17 at 0222 by MALENA HECK RN FLAGYL 250MG PO
[2017-08-31] MEDS: ACETYLCYSTEINE 10% SOLN 400 MG/4 ML VIAL NEB SCH ×4 (00:05→23:03)
[2017-08-31] MEDS ORDERED: MEROPENEM 500 MG VIAL IV ONE (04:52)
[2017-08-31] MEDS ORDERED: METRONIDAZOLE 500MG/ NS 100ML 100 ML IV ONE (04:55)
[2017-08-31] MEDS: MEROPENEM 500 MG in IV NS 0.9% 50 ML IV SCH ×3 (04:57→21:00)
[2017-08-31] MEDS: DILTIAZEM HCL 30 MG TABLET PO SCH ×3 (05:03→21:00)
[2017-08-31] MEDS: METRONIDAZOLE 500MG/ NS 100ML 500 MG in PREMIX 1 EA IV SCH ×3 (05:32→21:26)
--- NOTE | 2017-08-31 06:44 | NUR ---
RN MS CLOSING NOTES ALL DUE MEDS GIVEN, NEEDS MET AND RENDERED. PT IS RESPONSIVE. RESPIRATIONS ARE EVEN AND UNLABORED, NOT IN ANY ACUTE DISTRESS NOTED. DENIES ANY PAIN THROUGHOUT SHIFT. LUIS MIDLINE INTACT AND PATENT. DRESSING KEPT CLEAN AND DRY. SKIN ASSESSMENT DONE, PHOTOS TAKEN AND PLACED IN PT'S CHART. REPOSITIONED Q2H FOR COMFORT AND TO PREVENT FURTHER SKIN INJURIES. WILL ENDORSE TO NEXT SHIFT FOR CONTINUITY OF CARE.
--- NOTE | 2017-08-31 07:44 | NUR ---
MS RN OPENING NOTE RECEIVED BEDSIDE SBAR REPORT ON THE PATIENT. PATIENT IS A/O X1, ASLEEP EASILY AWAKEN. PATIENT IS CONFUSED AND FORGETFUL. DENIES PAIN/DISCOMFORT AT THIS TIME. CHEST IS RISING EQUALLY BILATERALLY. PATIENT IS IN BED. BED IS LOCKED IN LOWEST POSITION, SIDE RAILS UP X3, BED ALARM IS ON. CALL LIGHT WITHIN REACH. PATIENT IS EDUCATED TO USE THE CALL LIGHT TO CALL FOR ASSISTANCE. PATIENT'S ROOM IS LOCATED CLOSE TO NURSES STATION FOR VISUALIZATION AND FREQUENT ASSESS,MENT OF NEEDS. ALL NEEDS ARE MET AT THIS TIME. WILL CONTINUE TO ASSESS/MONITOR THROUGHOUT THE SHIFT.
[2017-08-31 08:00] VITALS: BP 116/68
[2017-08-31] MEDS ORDERED: METRONIDAZOLE 500MG/ NS 100ML 500 MG in PREMIX 1 EA IV SCH (08:45)
[2017-08-31 08:59] LABS: BASOPHILS % (AUTO) 0.1 % (0.0-2.0); EOSINOPHILS % (AUTO) 0.1 % (0.0-6.0); HEMATOCRIT 32 % (39-51); HEMOGLOBIN 10.3 g/dL (13.5-17.5); LYMPHOCYTES # (AUTO) 0.8 /CMM (0.8-4.8); MEAN CORPUSCULAR HEMOGLOBIN 26 PG (26.0-33.0); MEAN CORPUSCULAR HGB CONC 32 g/dl (31.0-36.0); MEAN CORPUSCULAR VOLUME 82 fL (80-96); MONOCYTES # (AUTO) 1.5 /CMM (0.1-1.30); MONOCYTES % (AUTO) 7.2 % (2.0-12.0); NEUTROPHILS # (AUTO) 18.6 /CMM (1.8-8.9); NEUTROPHILS % (AUTO) 88.6 % (43.0-81.0); PLATELET COUNT (AUTO) 296 /CMM (150-450); RDW COEFFICIENT OF VARIATION 23.5 (11.5-15.0); RED BLOOD CELL COUNT(AUTO) 3.96 MIL/uL (4.5-6.0)
[2017-08-31 09:12] LABS: CALCIUM, SERUM 8.2 mg/dL (8.5-10.1); CARBON DIOXIDE 20 mmol/L (21-32); CHLORIDE 110 mmol/L (98-107); CREATININE 3.1 mg/dL (0.6-1.3); GLUCOSE 108 mg/dL (74-106); MAGNESIUM 2.2 mg/dL (1.8-2.4); PHOSPHORUS 4.4 mg/dL (2.5-4.9); POTASSIUM 3.9 mmol/L (3.5-5.1); SODIUM SERUM 144 mmol/L (136-145); UREA NITROGEN, BLOOD 44 mg/dL (7-18)
--- NOTE | 2017-08-31 09:49 | NUR ---
DOCUMENTED PREVIOUS SHIFT'S NON-ADMIN MEDS NOT ADMINISTERED TO RID OF THE RED PASSED DUE REMINDER
[2017-08-31] MEDS: LEVOTHYROXINE SODIUM 50 MCG TABLET PO SCH (09:57)
[2017-08-31] MEDS: ASPIRIN 81 MG TAB.CHEW PO SCH (09:57)
[2017-08-31] MEDS: POTASSIUM CHLORIDE 20 MEQ TAB.PRT.SR PO SCH (09:57)
[2017-08-31] MEDS: FAMOTIDINE (20 MG) 20 MG TABLET PO SCH (09:57)
[2017-08-31] MEDS: RIFAMPIN 300 MG CAPSULE PO SCH (09:57)
[2017-08-31] MEDS: MULTIVITAMINS,THERAGRAN 1 UDTAB TABLET PO SCH (09:59)
[2017-08-31] MEDS: BOOST PLUS FOOD-CHOCLATE 237 ML BOX PO SCH ×2 (10:01→18:26)
[2017-08-31] MEDS: HYDROGEL DRESSING 90 GM TUBE TP SCH (10:01)
--- NOTE | 2017-08-31 14:07 | NUR ---
DIETITIAN RECOMMENDED APPETITE STIMULATING AGENT. DISCUSSED WITH DR. HOOKER. RECEIVED AN ORDER FOR REMERON 7.5MG HS. READ BACK AND VERIFIED. WILL CARRY OUT RECEIVED.
--- NOTE | 2017-08-31 19:30 | NUR ---
MS RN NOTE PATIENT A/O X1, CONFUSED, LETHARGIC. ASLEEP, EASILY AWAKEN. EXTREMITIES ELEVATED WITH PILLOWS. DRESSINGS TO WOUNDS C/D/I. CHEST IS RISING EQUALLY BILATERALLY. SPO2 95 % ON 4L. BED IS LOCKED IN LOWEST POSITION, SIDE RAILS UP X3, BED ALARM IS ON. CALL LIGHT WITHIN REACH. WILL CONTINUE TO MONITOR.
--- NOTE | 2017-08-31 19:30 | NUR ---
MS RN CLOSING NOTE .PATIENT IS A/O X1, CONFUSED, LETHARGIC. ASLEEP, EASILY AWAKEN. DENIES PAIN/DISCOMFORT AT THIS TIME. CHEST IS RISING EQUALLY BILATERALLY. SPO2 97 % ON 4L. PATIENT IS IN BED. BED IS LOCKED IN LOWEST POSITION, SIDE RAILS UP X3, BED ALARM IS ON. CALL LIGHT WITHIN REACH. FAMILY AT THE BEDSIDE. PATIENT/FAMILY IS EDUCATED TO USE THE CALL LIGHT TO CALL FOR ASSISTANCE VIA TEACH BACK METHOD AND VERBALIZED UNDERSTANDING/RETURNED DEMONSTRATION. ALL NEEDS ARE MET AT THIS TIME. ALL DUE MEDICATIONS ADMINISTERED. WILL ENDORSE TO THE USED CAR MAKE READY WORKER FOR AMY.
[2017-08-31 20:00] VITALS: BP 126/64
--- NOTE | 2017-08-31 20:30 | NUR ---
MS RN NOTE CLEANED PATIENT. DIRTY DRESSING TO SACRAL AREA AND RIGHT ARM CHANGED. TURNING AND REPOSITIONING EVERY TWO HOURS. WILL CONTINUE TO MONITOR.
[2017-08-31] MEDS: DONEPEZIL 5 MG TABLET PO SCH (21:29)
[2017-08-31] MEDS: MIRTAZAPINE 15 MG TABLET PO SCH (21:29)
[2017-08-31] MEDS: ATORVASTATIN 10 MG TABLET PO SCH (21:29)
[2017-09-01] MEDS: MEROPENEM 500 MG in IV NS 0.9% 50 ML IV SCH ×3 (04:33→21:30)
[2017-09-01] MEDS: METRONIDAZOLE 500MG/ NS 100ML 500 MG in PREMIX 1 EA IV SCH ×2 (05:22→13:10)
[2017-09-01] MEDS: DILTIAZEM HCL 30 MG TABLET PO SCH ×3 (05:24→21:00)
--- NOTE | 2017-09-01 06:28 | NUR ---
MS RN CLOSING NOTE .PATIENT IS A/O X1, CONFUSED, LETHARGIC. ASLEEP, EASILY AWAKEN. DENIES PAIN/DISCOMFORT AT THIS TIME. CHEST IS RISING EQUALLY BILATERALLY. SPO2 96 % ON 4L. DRESSINGS CHANGED. C/D/I. PATIENT IS IN BED. BED IS LOCKED IN LOWEST POSITION, SIDE RAILS UP X3, BED ALARM IS ON. CALL LIGHT WITHIN REACH. ALL NEEDS ARE MET AT THIS TIME. ALL DUE MEDICATIONS ADMINISTERED. WILL ENDORSE TO THE CERTIFIED MEDICATION AIDE FOR AMY.
--- NOTE | 2017-09-01 07:20 | NUR ---
ms rn initial notes Received patient in bed, asleep, head of bed elevated, no SOB or distress noted. On 02 4lpm via NC 02 saturation of 94%. [place] in placed attached to drainage bag. LUIS midline in placed and patent. Alert and oriented x 1, opens her eyes. Kept patient clean and comfortable in bed, call light with in patient reach, will continue to monitor accordingly.
[2017-09-01 07:49] LABS: BASOPHILS % (AUTO) 0.1 % (0.0-2.0); EOSINOPHILS % (AUTO) 0.1 % (0.0-6.0); HEMATOCRIT 30 % (39-51); HEMOGLOBIN 9.6 g/dL (13.5-17.5); LYMPHOCYTES # (AUTO) 0.7 /CMM (0.8-4.8); LYMPHOCYTES % (AUTO) 4.4 % (20.0-44.0); MEAN CORPUSCULAR HEMOGLOBIN 26 PG (26.0-33.0); MEAN CORPUSCULAR HGB CONC 32 g/dl (31.0-36.0); MEAN CORPUSCULAR VOLUME 82 fL (80-96); MONOCYTES # (AUTO) 1.1 /CMM (0.1-1.30); MONOCYTES % (AUTO) 6.7 % (2.0-12.0); NEUTROPHILS # (AUTO) 14.6 /CMM (1.8-8.9); NEUTROPHILS % (AUTO) 88.7 % (43.0-81.0); PLATELET COUNT (AUTO) 277 /CMM (150-450); RDW COEFFICIENT OF VARIATION 23.5 (11.5-15.0); RED BLOOD CELL COUNT(AUTO) 3.63 MIL/uL (4.5-6.0); WHITE BLOOD COUNT (AUTO) 16.4 K/uL (4.3-11.0)
[2017-09-01 08:00] VITALS: BP 119/68
[2017-09-01 08:07] LABS: CARBON DIOXIDE 21 mmol/L (21-32); CHLORIDE 110 mmol/L (98-107); CREATININE 3.3 mg/dL (0.6-1.3); GLUCOSE 102 mg/dL (74-106); MAGNESIUM 2.3 mg/dL (1.8-2.4); PHOSPHORUS 4.7 mg/dL (2.5-4.9); POTASSIUM 3.8 mmol/L (3.5-5.1); SODIUM SERUM 143 mmol/L (136-145); UREA NITROGEN, BLOOD 50 mg/dL (7-18)
[2017-09-01] MEDS: MULTIVITAMINS,THERAGRAN 1 UDTAB TABLET PO SCH (08:45)
[2017-09-01] MEDS: BOOST PLUS FOOD-CHOCLATE 237 ML BOX PO SCH ×2 (08:45→17:04)
[2017-09-01] MEDS: POTASSIUM CHLORIDE 20 MEQ TAB.PRT.SR PO SCH (08:45)
[2017-09-01] MEDS: FAMOTIDINE (20 MG) 20 MG TABLET PO SCH (08:45)
[2017-09-01] MEDS: ASPIRIN 81 MG TAB.CHEW PO SCH (08:45)
[2017-09-01] MEDS: RIFAMPIN 300 MG CAPSULE PO SCH (08:45)
[2017-09-01] MEDS: HYDROGEL DRESSING 90 GM TUBE TP SCH (08:46)
[2017-09-01] MEDS: LEVOTHYROXINE SODIUM 50 MCG TABLET PO SCH (08:47)
[2017-09-01] MEDS: ACETYLCYSTEINE 10% SOLN 400 MG/4 ML VIAL NEB SCH ×3 (09:30→23:34)
[2017-09-01] MEDS ORDERED: MORPHINE SULFATE INJ 4 MG/ML DISP.SYRIN IV PRN (14:30)
--- NOTE | 2017-09-01 15:37 | NUR ---
ms rn notes Informed Dr. Valle regarding patient condition and ordered Chest x ray stat and ABG stat. All orders carried out and noted.
[2017-09-01 16:00] VITALS: BP 114/81
[2017-09-01 17:22] LABS: ABG BASE EXCESS -4.1 mmol/L; ABG OXYGEN SATURATION 96.6 % (92.0-98.5); ABG PCO2 28.6 mmHg (35.0-45.0); ABG PH 7.442 (7.350-7.450); ABG PO2 94.1 mmHg (75.0-100.0); AaDO2 136.6 mmHg; COHb 0.3 % (0.5-1.5); MetHb 0.5 % (0.0-1.5); O2Hb 95.8 % (94.0-97.0); SITE, ABG Left Brachial; VENT MODE, BG nasal cannula
--- NOTE | 2017-09-01 19:14 | NUR ---
ms rn closing notes All needs attended, anticipated, and provided. Kept patient clean and comfortable in bed, call light with in patient reach. Endorsed to next shift RN to continue care.
--- NOTE | 2017-09-01 19:59 | NUR ---
RN MS INITIAL NOTES Received pt laying in bed with HOB elevated. Respirations are even and unlabored, not in any acute distress at this time. No facial grimacing or moaning noted. LUIS midline intact, patent. Dressing kept clean and dry. Daughters at bedside and listened carefully and rendered needs. Pt will be NPO post midnight. Will reposition q2h to prevent further skin injuries and for comfort. Will continue to monitor throughout shift for continuity of care.
[2017-09-01 20:35] VITALS: BP 122/82
[2017-09-01 21:23] VITALS: BP 122/82
[2017-09-01] MEDS: DONEPEZIL 5 MG TABLET PO SCH (22:00)
[2017-09-01] MEDS: MIRTAZAPINE 15 MG TABLET PO SCH (22:00)
[2017-09-01] MEDS: ATORVASTATIN 10 MG TABLET PO SCH (22:00)
--- NOTE | 2017-09-01 22:28 | NUR ---
RN NOTES Pt refused to take bedtime medications. Offered to take medications with applesauce. Pt still noted with refusal. Explained the risks and benefits of refusal x3, pt still refused. Will honor pt's dignity and the right to refuse. Will continue to monitor throughout shift for any significant changes.
--- NOTE | 2017-09-01 23:23 | NUR ---
RN NOTES NOTIFIED EDY OF SCHEDULED PROCEDURE TIME AT 1530. PER EDY, SHE WILL BE HERE A COUPLE HOURS BEFORE PROCEDURE TIME.
[2017-09-02] MEDS: MEROPENEM 500 MG in IV NS 0.9% 50 ML IV SCH ×3 (04:23→20:47)
[2017-09-02] MEDS: DILTIAZEM HCL 30 MG TABLET PO SCH ×3 (05:00→21:00)
--- NOTE | 2017-09-02 05:08 | NUR ---
RN NOTES PT SCHEDULED FOR CARDIZEM AT 0500. PT IS CURRENTLY NPO D/T PROCEDURE TODAY. PT ALSO REFUSED TO TAKE IT, OFFERED WITH APPLESAUCE AND STILL NOTED WITH REFUSAL. NO S/SX OF HYPO/HYPERTENSION NOTED. WILL CONTINUE TO MONITOR.
--- NOTE | 2017-09-02 06:13 | NUR ---
RN CLOSING NOTES PT IS CURRENTLY NPO POST MIDNIGHT D/T SCHEDULED PROCEDURE TODAY. PT REFUSED PO MEDICATIONS LAST NIGHT AND THIS MORNING, OFFERED WITH APPLESAUCE FOR EASIER SWALLOWING, STILL NOTED WITH REFUSAL. NO S/SX OF HYPO/HYPERTENSION NOTED. NO FACIAL GRIMACING OR MOANING NOTED. DENIES SOB, CHEST PAIN. PT REPOSITIONED Q2H TO PREVENT FURTHER SKIN INJURIES AND FOR COMFORT. BILATERAL HEELS AND PROMINENCES OFFLOADED. REMINDED PT TO USE CALL LIGHT WHEN ASSISTANCE IS NEEDED, CALL LIGHT IS LEFT WITHIN REACH. WILL ENDORSE TO NEXT SHIFT FOR CONTINUITY OF CARE.
[2017-09-02] MEDS: LEVOTHYROXINE SODIUM 50 MCG TABLET PO SCH (07:30)
--- NOTE | 2017-09-02 07:30 | NUR ---
MS RN OPENING NOTES. PT A&0X1, RESTING BUT EASILY AWOKEN BY NAME. PT NPO. R/T: PROCEDURE. PT WITH O2 VIA NC AT 4LPM, SAO2 BI.LAT FINGERS BEST RESULT 75, SA02 AT EAR 95%, RT NOTIFIED AND GOT 100% AT RIGHT EAR. PT DENIES PAIN. PT ENDORSED HAVING A PERIOD OF DARK PURPLE TOES, BLANCHING, OVER NIGHT BUT LOOKING BETTER AT HAND OVER. PT WITH CABRERA INTACT AND DRAINING LITE WEI URINE. BED IN LOWEST LOCKED POSITION WITH HANDRAILSX4 AND CALL ENCARNACION WITHIN REACH. PT BRIEFED ON TODAY'S POC BUT WILL REQUIRE FURTHER REORIENTATION AND EXPLANATION.
[2017-09-02 08:00] VITALS: BP 132/76
[2017-09-02] MEDS: BOOST PLUS FOOD-CHOCLATE 237 ML BOX PO SCH ×2 (08:00→18:22)
--- NOTE | 2017-09-02 08:00 | NUR ---
MS RN NOTES. PT BI.LAT TOES APPEARING DARK BLUE/PURPLE, CHARGE NURSE NOTIFIED. WARM BLANKET WRAP APPLIED AND DOPPLER ATTAINED AND ATTEMPTED WITH PULSE NOT FOUND ON RIGHT, AND DECREASED ON THE LEFT. MD COLE AND SHANI NOTIFIED AND REVIEWED.
[2017-09-02] MEDS: ACETYLCYSTEINE 10% SOLN 400 MG/4 ML VIAL NEB SCH ×3 (08:24→23:36)
[2017-09-02] MEDS: ASPIRIN 81 MG TAB.CHEW PO SCH (09:00)
[2017-09-02] MEDS: MULTIVITAMINS,THERAGRAN 1 UDTAB TABLET PO SCH (09:00)
[2017-09-02] MEDS: RIFAMPIN 300 MG CAPSULE PO SCH (09:00)
[2017-09-02] MEDS: POTASSIUM CHLORIDE 20 MEQ TAB.PRT.SR PO SCH (09:00)
[2017-09-02] MEDS: FAMOTIDINE (20 MG) 20 MG TABLET PO SCH (09:00)
[2017-09-02] MEDS: HYDROGEL DRESSING 90 GM TUBE TP SCH (13:00)
[2017-09-02] MEDS ORDERED: ANESTHESIA TRAY IN PYXIS 1 EA TRAY MC ONE (15:00)
--- NOTE | 2017-09-02 16:00 | NUR ---
MS RN NOTES. PT TO PROCEDURE.
[2017-09-02] MEDS ORDERED: IOHEXOL 0 ML IV ONE (16:22)
[2017-09-02] MEDS ORDERED: HEPARIN SODIUM, PORCINE 1,000 UNIT/ML VIAL ONE (16:23)
[2017-09-02] MEDS ORDERED: BUPIVACAINE 0.25% 75 MG/30 ML VIAL ONE (16:24)
--- NOTE | 2017-09-02 17:20 | NUR ---
MS RN NOTES. PT RETURNED, VITALS WNL, WARM BLANKETS APPLIED.
[2017-09-02] MEDS ORDERED: FEE PK DOSING 1 MIN EA MC ONE (17:30)
[2017-09-02] MEDS: VANCOMYCIN 1 GM in IV D5W 250 ML IV SCH (18:28)
--- NOTE | 2017-09-02 19:18 | NUR ---
MS RN CLOSING NOTES. PT REMAINS A&0X1. PT WITH SIMPLE MASK, NIGHT NURSE ENDORSED TO CHANGE TO NC. PT DENIES PAIN AND REFUSES ANALGESIA. L CHEST WALL DRAIN INCISION WITH DRAIN AT BEDSIDE, RECOVERY NURSE ENDORSED TO LEAVE DRAIN OFF. PT WITH R UA MIDLINE INTACT AND OPERATIONAL, FC DRAINING WITH 360 IN COLLECTION, WEI YELLOW SEMI OPAQUE URINE. ALL DAY NURSE DUTIES ATTENDED TO AND PT AND FAMILY IS WITHOUT CONCERN OR COMPLAINT AT THIS TIME. ENDORSED TO NIGHT NURSE AT BEDSIDE FOR AMY.
--- NOTE | 2017-09-02 19:25 | NUR ---
MS RN NOTES RECEIVED PT IN BED, RESTING COMFORTABLY AT THIS TIME, AROUSES EASILY. , A/O X 1, VERBALLY RESPONSIVE. NO DISTRESS, NO SOB NOTED. ON 02 @ 3LPM VIA NC KYLE WELL. LEFT PLEUREX, COVERED WITH CLEAN AND INTACT DRESSING, NO BLEEDING NOTED. LUIS MIDLINE, INTACT AND PATENT, NO S/S OF INFILTRATION NOTED NOR S/S OF INFECTION NOTED. FC IS INTACT AND PATENT, DRAINING WITH YELLOW URINE. DENIES ANY PAIN OR DISCOMFORT AT AT THIS TIME. SAFETY PRECAUTIONS OBSERVED. CALL LIGHT WITHIN REACH. WILL CONT TO MONITOR.
[2017-09-02 20:00] VITALS: BP 121/90
[2017-09-02] MEDS: DONEPEZIL 5 MG TABLET PO SCH (22:17)
[2017-09-02] MEDS: MIRTAZAPINE 15 MG TABLET PO SCH (22:17)
[2017-09-02] MEDS: ATORVASTATIN 10 MG TABLET PO SCH (22:17)
[2017-09-02] MEDS: ALBUTEROL FS 2.5 MG/0.5 ML VIAL.NEB NEB PRN (23:36)
[2017-09-02] MEDS: IPRATROPIUM NEB FS 0.5 MG/2.5 ML AMPUL.NEB NEB PRN (23:36)
[2017-09-03] MEDS: MEROPENEM 500 MG in IV NS 0.9% 50 ML IV SCH ×3 (04:56→21:30)
[2017-09-03] MEDS: DILTIAZEM HCL 30 MG TABLET PO SCH ×3 (05:00→21:00)
--- NOTE | 2017-09-03 05:25 | NUR ---
PT REFUSED CARDIZEM X 3, RISK AND BENEFITS EXPLAINED, PT STILL REFUSED. WILL CONTINUE TO MONITOR.
--- NOTE | 2017-09-03 07:05 | NUR ---
S/B DR. ALSTON ( VASCULAR DR) , PER MD HE'LL TALK TO THE PT'S FAMILY.
--- NOTE | 2017-09-03 07:15 | NUR ---
RN OPEN NOTES RECEIVED REPORT FROM NEIGHBORHOOD COORDINATOR NURSE. PATIENT IS IN BED ALERT. UNABLE TO SAY HIS NAME. NO SIGNS AND SYMPTOMS OF DISTRESS. BREATHING IN BILATERALLY EQUAL AND UNLABORED. BED IN LOW POSITION, LOCKED AND TWO SIDE RAILS ARE UP. CALL LIGHT WITHIN REACH FOR SAFETY. WILL CONTINUE TO ASSESS AND MONITOR PATIENT
--- NOTE | 2017-09-03 07:20 | NUR ---
MS RN NOTES PT IN BED, RESTING COMFORTABLY AT THIS TIME, AROUSES EASILY. , A/O X 1, VERBALLY RESPONSIVE. NO DISTRESS, NO SOB NOTED. ON 02 @ 3LPM VIA NC KYLE WELL. LEFT PLEUREX, COVERED WITH CLEAN AND INTACT DRESSING, NO BLEEDING NOTED. LUIS MIDLINE, INTACT AND PATENT, NO S/S OF INFILTRATION NOTED NOR S/S OF INFECTION NOTED. FC IS INTACT AND PATENT, DRAINING WITH YELLOW URINE. DENIES ANY PAIN OR DISCOMFORT AT AT THIS TIME. SAFETY PRECAUTIONS OBSERVED. GOOD SKIN CARE RENDERED. CALL LIGHT WITHIN REACH. ENDORSED TO DAY SHIFT RN FOR AMY. .
--- NOTE | 2017-09-03 07:20 | NUR ---
RN OPEN NOTES RECEIVED REPORT FROM SENIOR PAYROLL ADMINISTRATOR NURSE. PATIENT IS IN BED, WITH HIS EYES CLOSED. EASILY AROUSED TO CALLING HIS NAME. NO SIGNS AND SYMPTOMS OF DISTRESS. BREATHING IS BILATERALLY EQUAL AND UNLABORED. BED IN LOW POSITION, LOCKED AND TWO SIDE RAILS ARE UP. CALL LIGHT WITHIN REACH FOR SAFETY. WILL CONTINUE TO ASSESS AND MONITOR PATIENT
[2017-09-03] MEDS: ACETYLCYSTEINE 10% SOLN 400 MG/4 ML VIAL NEB SCH ×2 (07:33→15:21)
[2017-09-03 08:00] VITALS: BP 132/93
--- NOTE | 2017-09-03 08:35 | NUR ---
CALLED PHARMACY TO CHANGE KCL PILLS TO THE POWDER. PATIENT MEDS ARE SUPPOSE TO BE CRUSHED
[2017-09-03] MEDS ORDERED: POTASSIUM CHLORIDE 20 MEQ POWDER PACKET GT SCH (09:00)
[2017-09-03] MEDS: LEVOTHYROXINE SODIUM 50 MCG TABLET PO SCH (09:06)
[2017-09-03] MEDS: POTASSIUM CHLORIDE 20 MEQ POWDER PACKET PO SCH (09:06)
[2017-09-03] MEDS: MULTIVITAMINS,THERAGRAN 1 UDTAB TABLET PO SCH (09:07)
[2017-09-03] MEDS: ASPIRIN 81 MG TAB.CHEW PO SCH (09:07)
[2017-09-03] MEDS: RIFAMPIN 300 MG CAPSULE PO SCH (09:07)
[2017-09-03] MEDS: FAMOTIDINE (20 MG) 20 MG TABLET PO SCH (09:07)
[2017-09-03] MEDS: HYDROGEL DRESSING 90 GM TUBE TP SCH (09:07)
[2017-09-03] MEDS: BOOST PLUS FOOD-CHOCLATE 237 ML BOX PO SCH ×2 (09:08→15:56)
--- NOTE | 2017-09-03 14:00 | NUR ---
DR LOPEZ NOTIFIED REGARDING PATIENT DEEP LABOR BREATHING. HEART RATE 102. SBP 98 AND RR 22. O2 87%. PATIENT PUTS ON NRB. WILL CONTINUE TO MONITOR
[2017-09-03 16:00] VITALS: BP 128/95
--- NOTE | 2017-09-03 16:47 | NUR ---
DRESSING CHANGE COMPLETED PER HOSPITAL POLICY AND SOCIAL WELFARE CLERK RECOMMENDATION
--- NOTE | 2017-09-03 18:51 | NUR ---
RN CLOSING NOTES PATIENT IS IN BED. DAUGHTER AND AT BEDSIDE. NO SIGNS AND SYMPTOMS OF DISTRESS. ON NRB 15L. BED ON LOW POSITION, LOCKED AND TWO SIDE RAILS ARE UP. CALL LIGHT WITHIN CALL FOR SAFETY. ALL NURSING CARE ANTICIPATED AND ATTENDED FOR. PATIENT KEPT CLEAN AND DRY. DRESSING CHANGE COMPLETED. WILL ENDORSE TO BUSINESS PERFORMANCE SPECIALIST RN
--- NOTE | 2017-09-03 19:10 | NUR ---
MS/RN OPENING NOTES PT RECEIVED RESTING IN BED. AROUSABLE TO NAME. OPENS EYES AND NODS YES/NO. ON 15L O2 VIA NON REBREATHER MASK. BREATHING EVEN AND UNLABORED WITH NO SIGNS OF DISTRESS. LUIS MIDLINE PATENT AND INTACT. CABRERA IN PLACE AND DRAINING TO GRAVITY. NO FACIAL GRIMACING OR S/S OF PAIN. BED IN LOW/LOCKED POSITION, CALL LIGHT IN REACH. SIDE RAILS UPX2. WILL CONTINUE TO MONITOR
[2017-09-03 20:00] VITALS: BP 112/51
[2017-09-03] MEDS: MIRTAZAPINE 15 MG TABLET PO SCH (21:33)
[2017-09-03] MEDS: DONEPEZIL 5 MG TABLET PO SCH (21:33)
[2017-09-03] MEDS: ATORVASTATIN 10 MG TABLET PO SCH (21:33)
[2017-09-04] MEDS: IPRATROPIUM NEB FS 0.5 MG/2.5 ML AMPUL.NEB NEB PRN ×2 (00:06→08:22)
[2017-09-04] MEDS: ACETYLCYSTEINE 10% SOLN 400 MG/4 ML VIAL NEB SCH ×2 (00:06→08:22)
[2017-09-04] MEDS: ALBUTEROL FS 2.5 MG/0.5 ML VIAL.NEB NEB PRN ×2 (00:06→08:22)
[2017-09-04] MEDS: DILTIAZEM HCL 30 MG TABLET PO SCH ×2 (05:00→13:00)
[2017-09-04] MEDS: MEROPENEM 500 MG in IV NS 0.9% 50 ML IV SCH (05:47)
[2017-09-04] MEDS: VANCOMYCIN 1 GM in IV D5W 250 ML IV SCH (06:00)
[2017-09-04] MEDS: LEVOTHYROXINE SODIUM 50 MCG TABLET PO SCH (07:30)
--- NOTE | 2017-09-04 07:40 | NUR ---
MS/RN CLOSING NOTES PT ASLEEP, LETHARGIC BUT EASILY AROUSABLE TO NAME. ABLE TO NOD YES/NO AND MOUTH WORDS. REMAINS ON NON REBREATHER MASK AT 15L O2. BREATHING EVEN AND SLIGHTLY LABORED. LEFT CHEST DRESSING REMAINS C/D/I. LUIS MIDLINE PATENT AND INTACT. CABRERA IN PLACE AND DRAINING TO GRAVITY. KEPT PT COMFORTABLE DURING SHIFT DRESSINGS TO BILATERAL ARMS CHANGED DURING SHIFT. BED REMAINS IN LOW/LOCKED POSITION WITH CALL LIGHT IN REACH. SIDE RAILS UPX2. ENDORSED TO DAY SHIFT RN AMY.
[2017-09-04 07:42] LABS: BASOPHILS % (AUTO) 0.2 % (0.0-2.0); EOSINOPHILS # (AUTO) 0.1 /CMM (0.0-0.7); EOSINOPHILS % (AUTO) 0.4 % (0.0-6.0); HEMATOCRIT 34 % (39-51); HEMOGLOBIN 10.6 g/dL (13.5-17.5); LYMPHOCYTES % (AUTO) 5.7 % (20.0-44.0); MEAN CORPUSCULAR HEMOGLOBIN 27 PG (26.0-33.0); MEAN CORPUSCULAR HGB CONC 32 g/dl (31.0-36.0); MEAN CORPUSCULAR VOLUME 84 fL (80-96); MONOCYTES # (AUTO) 1.1 /CMM (0.1-1.30); MONOCYTES % (AUTO) 6.4 % (2.0-12.0); NEUTROPHILS # (AUTO) 15.1 /CMM (1.8-8.9); NEUTROPHILS % (AUTO) 87.3 % (43.0-81.0); PLATELET COUNT (AUTO) 122 /CMM (150-450); RDW COEFFICIENT OF VARIATION 25.5 (11.5-15.0); RED BLOOD CELL COUNT(AUTO) 4.01 MIL/uL (4.5-6.0); WHITE BLOOD COUNT (AUTO) 17.3 K/uL (4.3-11.0)
--- NOTE | 2017-09-04 07:56 | NUR ---
MS RN OPENING NOTE RECEIVED BEDSIDE SBAR REPORT ON THE PATIENT. PATIENT IS A/O X1, LETHARGIC. NO S/S OF PAIN/DISCOMFORT AT THIS TIME. PATIENT IS ON OXYGEN PRESCRIBED. CHEST RISING EQUALLY BILATERALLY. PATIENT IS IN BED. BED IS LOCKED IN LOWEST POSITION. SIDE RAILS ARE UP X3. BED ALARM IS ON. CALL LIGHT WITHIN REACH. PATIENT EDUCATED TO USE THE CALL LIGHT TO CALL FOR ASSISTANCE. PATIENT REPOSITIONED FOR COMFORT. ALL NEEDS ARE MET. WILL CONTINUE TO ASSESS/MONITOR.
[2017-09-04 08:00] VITALS: BP 62/41
[2017-09-04] MEDS: BOOST PLUS FOOD-CHOCLATE 237 ML BOX PO SCH (08:00)
[2017-09-04 08:05] LABS: CALCIUM, SERUM 8.2 mg/dL (8.5-10.1); CARBON DIOXIDE 14 mmol/L (21-32); CHLORIDE 114 mmol/L (98-107); CREATININE 4.1 mg/dL (0.6-1.3); GLUCOSE 120 mg/dL (74-106); POTASSIUM 4.5 mmol/L (3.5-5.1); SODIUM SERUM 146 mmol/L (136-145); UREA NITROGEN, BLOOD 63 mg/dL (7-18)
--- NOTE | 2017-09-04 08:48 | NUR ---
SPOKE TO RADIOLOGIST. RADIOLOGIST REPORTED PATIENT HAS A LARGE PNEUMOTHORAX. VITAL SIGNS CHECKED. BP 76/51 MM HG. SPO2 95% ON 15 L VIA NON-REBREATHER. DR. SMALL INFORMED. RN CALLED THE DAUGHTER FEUNTES INFORMED OF PATIENT'S CONDITION. RN CALLED PATIENT'S EDY. DR SMALL SPOKE WITH THE ON THE PHONE. FAMILY IS ON THEIR WAY TO THE HOSPITAL.
[2017-09-04] MEDS: FAMOTIDINE (20 MG) 20 MG TABLET PO SCH (09:00)
[2017-09-04] MEDS: ASPIRIN 81 MG TAB.CHEW PO SCH (09:00)
[2017-09-04] MEDS: RIFAMPIN 300 MG CAPSULE PO SCH (09:00)
[2017-09-04] MEDS: HYDROGEL DRESSING 90 GM TUBE TP SCH (09:00)
[2017-09-04] MEDS: POTASSIUM CHLORIDE 20 MEQ POWDER PACKET PO SCH (09:00)
[2017-09-04] MEDS: MULTIVITAMINS,THERAGRAN 1 UDTAB TABLET PO SCH (09:00)
--- NOTE | 2017-09-04 09:15 | NUR ---
DR SMALL CONNECTED THE BOTTLE TO THE CHEST TUBE. NO LIQUID DRAINING.
--- NOTE | 2017-09-04 09:25 | NUR ---
VANCO NOT ADMINISTERED THE THROUGH IS 26. PATIENT/FAMILY REFUSED THE REST OF THE MEDICATIONS.
--- NOTE | 2017-09-04 09:27 | NUR ---
DR SMALL AT THE BEDSIDE. FAMILY AT THE BEDSIDE. PATIENT'S BP DECREASED TO 60/31 MMHG. SPO2 99% ON 15L VIA NON-REBREATHER.
--- NOTE | 2017-09-04 09:31 | NUR ---
PATIENT'S FAMILY REFUSED THE CHEST TUBE INSERTION SUGGESTED BY DR. SMALL. FAMILY ASKED FOR COMFORT MEASURES ONLY. RECEIVED A BEDSIDE VERBAL ORDER FROM DR. SMALL FOR 2 MG MORPHINE IV ONCE NOW. ORDER READ BACK AND VERIFIED. WILL FOLLOW ORDER RECEIVED.
[2017-09-04] MEDS ORDERED: MORPHINE SULFATE INJ 4 MG/ML DISP.SYRIN IV ONE (10:30)
--- NOTE | 2017-09-04 10:43 | NUR ---
PATIENT'S BLOOD PRESSURE 67/[address] SMALL INFORMED. PER DR. SMALL ADMINISTER MORPHINE ORDERED FOR COMFORT. FAMILY AT THE BEDSIDE. COMFORT MEASURES DISCUSSED WITH THE FAMILY.
[2017-09-04 13:00] VITALS: BP 51/30
--- NOTE | 2017-09-04 13:45 | NUR ---
MS/RN Patient Patient found with absence of respirations, no pulses able to be palpated. Pupils fixed and dilated. Patient pronounced decreased at 1340, Monday September 04, 2017.
--- NOTE | 2017-09-04 14:15 | NUR ---
PATIENT PRONOUNCED BY CHARGE NURSE LUIS ALBERTO GRIFFIN RN. FAMILY AT THE BEDSIDE. DR. SMALL INFORMED. WATER CONSERVATION SPECIALIST INFORMED. RECORD OF /AUTHORIZATION FOR RELEASE OF REMAINS FORM SIGNED BY THE FAMILY AND PLACED IN THE CHART.
--- NOTE | 2017-09-04 14:17 | NUR ---
CALLED [facility] SPOKE TO KARINA. PER KARINA PATIENT IS NOT A CANDIDATE FOR ORGAN/TISSUE DONATION. .
--- NOTE | 2017-09-04 14:28 | NUR ---
CALLED TO [facility], SPOKE TO ANNI GREER. PER MR. GREER PATIENT'S REMAINS WILL BE PICKED UP IN THE NEXT 1-2 HOURS.
--- NOTE | 2017-09-04 15:30 | NUR ---
SPOKE TO EDY, PATIENT'S . INFORMED THE PATIENT WAS PICKED UP.
== END 2017-09-04 15:34 | disposition expired | DRG 871 ==
LOC: ER 19:54 → ICU 21:40 → TELE-TD 08-19 14:54 → TELE1 08-21 11:44 → MEDSG1 08-27 11:36 → MED 08-28 04:08
PROVIDERS: ADMIT Nurse Practitioner Acute Care; ATTEND Nurse Practitioner Acute Care
PROC: 0W9B3ZZ Drainage of Left Pleural Cavity, Percutaneous Approach (ICD-10-PCS; principal; 2017-08-18)
PROC: 05H533Z Insertion of Infusion Device into Right Subclavian Vein, Percutaneous Approach (ICD-10-PCS; 2017-08-20)
PROC: 0W9B3ZZ Drainage of Left Pleural Cavity, Percutaneous Approach (ICD-10-PCS; 2017-08-26)
PROC: 0B9P3ZZ Drainage of Left Pleura, Percutaneous Approach (ICD-10-PCS; 2017-09-02)
DX: A41.9 Sepsis, unspecified organism (principal); N17.0 Acute kidney failure with tubular necrosis; I21.A1 Myocardial infarction type 2; J96.91 Respiratory failure, unspecified with hypoxia; J86.9 Pyothorax without fistula; J15.6 Pneumonia due to other Gram-negative bacteria; L89.150 Pressure ulcer of sacral region, unstageable; Z51.5 Encounter for palliative care; D68.59 Other primary thrombophilia; E88.09 Other disorders of plasma-protein metabolism, not elsewhere classified; I50.33 Acute on chronic diastolic (congestive) heart failure; J98.11 Atelectasis; E44.0 Moderate protein-calorie malnutrition; J90 Pleural effusion, not elsewhere classified; N18.4 Chronic kidney disease, stage 4 (severe); E87.0 Hyperosmolality and hypernatremia; I13.0 Hypertensive heart and chronic kidney disease with heart failure and stage 1 through stage 4 chronic kidney disease, or unspecified chronic kidney disease; J93.9 Pneumothorax, unspecified; S21.119A Laceration without foreign body of unspecified front wall of thorax without penetration into thoracic cavity, initial encounter; N39.0 Urinary tract infection, site not specified; R64 Cachexia; B35.1 Tinea unguium; R65.20 Severe sepsis without septic shock; K21.9 Gastro-esophageal reflux disease without esophagitis; D50.9 Iron deficiency anemia, unspecified; D63.8 Anemia in other chronic diseases classified elsewhere; E03.9 Hypothyroidism, unspecified; I25.10 Atherosclerotic heart disease of native coronary artery without angina pectoris; F32.9 Major depressive disorder, single episode, unspecified; Z87.01 Personal history of pneumonia (recurrent); Z66 Do not resuscitate; G70.00 Myasthenia gravis without (acute) exacerbation; D47.3 Essential (hemorrhagic) thrombocythemia; I70.203 Unspecified atherosclerosis of native arteries of extremities, bilateral legs; Z91.14 Patient's other noncompliance with medication regimen; I48.2 Chronic atrial fibrillation; L89.621 Pressure ulcer of left heel, stage 1; L89.611 Pressure ulcer of right heel, stage 1; S90.415A Abrasion, left lesser toe(s), initial encounter; S90.414A Abrasion, right lesser toe(s), initial encounter; X58.XXXA Exposure to other specified factors, initial encounter; Y93.9 Activity, unspecified; Y92.129 Unspecified place in nursing home as the place of occurrence of the external cause; L98.8 Other specified disorders of the skin and subcutaneous tissue; F09 Unspecified mental disorder due to known physiological condition; S41.112A Laceration without foreign body of left upper arm, initial encounter; S41.111A Laceration without foreign body of right upper arm, initial encounter; Z68.25 Body mass index [BMI] 25.0-25.9, adult; F01.50 Vascular dementia, unspecified severity, without behavioral disturbance, psychotic disturbance, mood disturbance, and anxiety; I35.0 Nonrheumatic aortic (valve) stenosis; S51.811A Laceration without foreign body of right forearm, initial encounter; S61.412A Laceration without foreign body of left hand, initial encounter; Z85.01 Personal history of malignant neoplasm of esophagus; Z86.14 Personal history of Methicillin resistant Staphylococcus aureus infection; Z79.899 Other long term (current) drug therapy; S20.319A Abrasion of unspecified front wall of thorax, initial encounter
CPT/HCPCS: 36415; 36600; 71045-TC; 76942-TC; 80048-TC; 80053-TC; 80076-TC; 80202-TC; 81000-TC; 82803-TC; 83605-TC; 83735-TC; 84100-TC; 84484-TC; 85025-TC; 85610-TC; 85652-TC; 85730-TC; 87040-TC; 87070-TC; 87075-TC; 87081-TC; 87086-TC; 87102-TC; 87116; 87206; 88305-TC; 88312-TC; 89051-TC; 92526; 92611-TC; 94668-TC; 94799-TC; A4216; A4349; A4606; A6248; A6402; A6403; J0692; J1644; J1940; J1956; J2185; J2270; J2543; J2704; J3370; J3475; J3480; J3490; J7030; J7040; J7050; J7060; Q9967; Z7610